=== PATIENT | female | born 1970 | race Two or more races ===

== ENCOUNTER 2023-11-25 14:16 | Inpatient (IN) | payer MEDICAID ==
[~2023-11-25] VITALS: Ht 152.4 cm; Wt 75.6 kg
[2023-11-25] MEDS: SODIUM CHLORIDE 0.9% 1,000 ML IV ONE (15:34)
[2023-11-25 15:44] LABS: Basophils # (auto) 0 10 ^3/uL (0-0.2); Basophils % (auto) 0.3 % (0.0-2.0); Eosinophils # (auto) 0 10 ^3/uL (0-0.8); Eosinophils % (auto) 0.1 % (0.0-7.0); Hematocrit 41.1 % (36.0-46.0); Hemoglobin 13.2 g/dL (12.2-16.2); Lymphocytes # (auto) 2.8 10 ^3/uL (0.4-5.4); Lymphocytes % (auto) 19.3 % (10.0-50.0); Mean Corpuscular Hemoglobin 27.1 pg (28.0-32.0); Mean Corpuscular Hgb Conc. 32.1 g/dL (32.0-36.0); Mean Corpuscular Volume 84.3 fL (80.0-100.0); Monocytes # (auto) 1.1 10 ^3/uL (0-1.3); Monocytes % (auto) 7.4 % (0.0-12.0); Neutrophils # (auto) 10.7 10 ^3/uL (1.6-8.6); Neutrophils % (auto) 72.9 % (37.0-80.0); Nucleated Red Blood Cells % 0.1 %; Platelet Count (auto) 409 10^3/uL (140-450); Red Blood Cells 4.88 10^6/uL (4.0-5.20); Red Cell Distribution Width 13.9 % (11.8-14.3); White Blood Cell 14.7 10^3/uL (4.4-10.8)
[2023-11-25 16:07] LABS: Alanine Aminotransferase 66 U/L (7-40); Albumin 4.9 g/dL (3.2-4.8); Alkaline Phosphatase 274 U/L (46-116); Anion Gap 8 (5-15); Aspartate Aminotransferase 30 U/L (13-40); BUN/Creatinine Ratio 8.3 (10.0-20.0); Bilirubin, Total 1.7 mg/dL (0.2-1.0); Blood Urea Nitrogen 7 mg/dL (9-23); Calcium 10.2 mg/dL (8.7-10.4); Carbon Dioxide 24 mmol/L (20-30); Chloride 97 mmol/L (98-107); Glucose 392 mg/dL (74-106); Lipase 41 U/L (12-53); Potassium 4.5 mmol/L (3.5-5.1); Sodium 129 mmol/L (136-145); Total Protein 9.1 g/dL (5.7-8.2)
[2023-11-25 16:14] LABS: Lactic Acid w/Reflex 3.3 mmol/L (0.4-2.0)
[2023-11-25] MEDS: KETOROLAC TROMETH 30 MG/ML 1ML VIAL IV ONE (17:00)
[2023-11-25] MEDS: ONDANSETRON HCL 4 MG/2 ML VIAL IV ONE (17:00)
[2023-11-25 17:18] LABS: Urine Bacteria None Seen /hpf (None Seen)
[2023-11-25 17:40] LABS: Urine Blood 1+ /uL (Negative); Urine Clarity Clear (Clear); Urine Color Yellow (Yellow); Urine Protein, UAD 1+ (Negative); Urine Specific Gravity 1.029 (1.001-1.035); Urine Urobilinogen Normal (Negative); Urine WBC 5 /hpf (0 - 5)
[2023-11-25] MEDS: IOHEXOL 300 MG/ML 100ML BOTTLE IJ ONE (19:44)
[2023-11-25] MEDS ORDERED: MORPHINE SULFATE 4 MG/ML SYR/VIAL IV ONE (20:15)
[2023-11-25] MEDS ORDERED: MORPHINE SULFATE INJ 2 MG/ml SYRG IV PRN (21:00)
[2023-11-25] MEDS ORDERED: DEXTROSE (50%) 50ML SYRG IV PRN (21:00)
[2023-11-25] MEDS ORDERED: ONDANSETRON HCL 4 MG/2 ML VIAL IV PRN (21:00)
[2023-11-25 22:57] VITALS: PULSE 102; RESP 16; O2SAT 99
[2023-11-25] MEDS: ACCU-CHEK COMFORT CURVE STRIP VI SCH (23:58)
[2023-11-25] MEDS: InsuLIN REG 1unit/0.01ml Soln (100units/ml) SC SCH (23:58)
[2023-11-26 00:16] VITALS: BP 126/67; PULSE 109; RESP 18; TEMP 99.9; O2SAT 96
[2023-11-26] MEDS: KETOROLAC TROMETH 30 MG/ML 1ML VIAL IV ONE (00:27)
[2023-11-26] MEDS ORDERED: SUCR1TAB PO (04:20)
[2023-11-26] MEDS ORDERED: METF-370 PO (04:20)
[2023-11-26] MEDS ORDERED: SITA100T7 PO (04:20)
[2023-11-26] MEDS ORDERED: PANT40T PO (04:20)
[2023-11-26] MEDS ORDERED: METF-1145 PO (04:20)
[2023-11-26] MEDS ORDERED: OMEP1CAP70 PO (04:20)
[2023-11-26] MEDS ORDERED: INSU1INJ19 SC (04:20)
[2023-11-26] MEDS ORDERED: ESTR0.1C5 VG (04:20)
[2023-11-26 05:00] VITALS: BP 108/66; PULSE 95; RESP 18; TEMP 99.2; O2SAT 99
[2023-11-26 08:01] LABS: Hematocrit 38.6 % (36.0-46.0); Hemoglobin 12.2 g/dL (12.2-16.2); Mean Corpuscular Hgb Conc. 31.7 g/dL (32.0-36.0); Mean Corpuscular Volume 85.2 fL (80.0-100.0); Platelet Count (auto) 390 10^3/uL (140-450); Red Blood Cells 4.53 10^6/uL (4.0-5.20); Red Cell Distribution Width 13.7 % (11.8-14.3); White Blood Cell 16.7 10^3/uL (4.4-10.8)
[2023-11-26 08:04] LABS: Band Neutrophils % (manual) 0; Basophils % (manual) 0 (0.0-2.0); Blast Cells 0; Eosinophils % (manual) 0 (0-7); Metamyelocytes % 0; Myelocytes % 0; Promyelocytes % 0; Reactive Lymphocytes 0
[2023-11-26 08:11] LABS: Alanine Aminotransferase 45 U/L (7-40); Albumin 3.9 g/dL (3.2-4.8); Alkaline Phosphatase 214 U/L (46-116); Anion Gap 3 (5-15); Aspartate Aminotransferase 27 U/L (13-40); BUN/Creatinine Ratio 8.1 (10.0-20.0); Blood Urea Nitrogen 5 mg/dL (9-23); Calcium 9.5 mg/dL (8.7-10.4); Carbon Dioxide 26 mmol/L (20-30); Chloride 104 mmol/L (98-107); Glucose 202 mg/dL (74-106); Potassium 3.8 mmol/L (3.5-5.1); Sodium 133 mmol/L (136-145)
[2023-11-26 08:12] LABS: Bilirubin, Total 1.6 mg/dL (0.2-1.0); Total Protein 7.4 g/dL (5.7-8.2)
[2023-11-26] MEDS ORDERED: ACETAMINOPHEN 325 MG TAB PO PRN (08:30)
[2023-11-26 08:46] LABS: Lymphocytes % (manual) 19 (10.0-50.0); Monocytes % (manual) 9 (0-12); Platelet Estimate Adequate
[2023-11-26 09:00] VITALS: BP 111/62; PULSE 108; RESP 17; TEMP 99.1; O2SAT 98
[2023-11-26] MEDS: SODIUM CHLORIDE 0.9% 1,000 ML IV SCH (09:11)
[2023-11-26] MEDS: ACETAMINOPHEN 650 mg PER 20.3 mL UD PO PRN (09:24)
[2023-11-26 13:00] VITALS: BP 110/65; PULSE 96; RESP 17; TEMP 98.8; O2SAT 96
[2023-11-26] MEDS: metroNIDAZOLE 500MG/100ML 100 ML IV SCH (13:03)
[2023-11-26] MEDS: LACTULOSE 20Gm/30ML SOLN PO ONE (13:34)
[2023-11-26 13:40] LABS: Hepatitis B Core Total AB Negative (Negative)
[2023-11-26] MEDS: CIPROFLOXACIN 400MG/200ML 200 ML IV SCH (14:07)
[2023-11-26 14:10] LABS: Hepatitis A Total Antibody Positive (Negative); Hepatitis B Surface Antibody Negative (Negative); Hepatitis B Surface Antigen Negative (Negative); Hepatitis C Antibody Negative (Negative)
[2023-11-26] MEDS: GADOTERATE MEG 10 MMOL/20ml INJ (0.5MMOL/ml) IV ONE (15:12)
[2023-11-26] MEDS: ERGOCALCIFEROL 50,000 UNIT(1.25MG) CAP PO SCH (16:00)
[2023-11-26 17:00] VITALS: BP 138/86; PULSE 111; RESP 17; TEMP 102.3; O2SAT 98
[2023-11-26] MEDS: ENOXAPARIN SOD 40 MG/0.4 ML SYRINGE SC ONE (17:33)
[2023-11-26] MEDS: PIPERACILLIN-TAZOB 3.375GM 100 ML IV ONE (18:30)
[2023-11-26] MEDS: diphenhdrAMINE HCL 50 MG/1 ML VL IV ONE (20:28)
[2023-11-26 21:00] VITALS: BP 121/77; PULSE 121; RESP 15; TEMP 100.3; O2SAT 98
[2023-11-26] MEDS: LACTULOSE 20Gm/30ML SOLN PO SCH (22:00)
[2023-11-27] MEDS: PIPERACILLIN-TAZOB 3.375GM 100 ML IV SCH (00:24)
[2023-11-27 05:00] VITALS: BP 142/79; PULSE 113; RESP 16; TEMP 98.2; O2SAT 98
[2023-11-27] MEDS ORDERED: VANCOMYCIN PER PHARMACY 0 MG IV SCH (05:30)
[2023-11-27] MEDS: VANCOMYCIN 1GM/200ML 200 ML IV ONE ×2 (06:00→10:39)
[2023-11-27 07:04] LABS: Basophils # (auto) 0 10 ^3/uL (0-0.2); Basophils % (auto) 0.3 % (0.0-2.0); Eosinophils # (auto) 0 10 ^3/uL (0-0.8); Hemoglobin 12.3 g/dL (12.2-16.2); Lymphocytes # (auto) 1.5 10 ^3/uL (0.4-5.4); Monocytes # (auto) 0.8 10 ^3/uL (0-1.3)
[2023-11-27 07:05] LABS: Eosinophils % (auto) 0.3 % (0.0-7.0); Hematocrit 37.8 % (36.0-46.0); Lymphocytes % (auto) 12.9 % (10.0-50.0); Mean Corpuscular Hgb Conc. 32.5 g/dL (32.0-36.0); Monocytes % (auto) 6.9 % (0.0-12.0); Neutrophils # (auto) 9.1 10 ^3/uL (1.6-8.6); Neutrophils % (auto) 79.6 % (37.0-80.0); Platelet Count (auto) 439 10^3/uL (140-450); Red Blood Cells 4.56 10^6/uL (4.0-5.20); Red Cell Distribution Width 13.9 % (11.8-14.3); White Blood Cell 11.4 10^3/uL (4.4-10.8)
[2023-11-27 07:24] LABS: Chloride 101 mmol/L (98-107); Potassium 3.3 mmol/L (3.5-5.1); Sodium 134 mmol/L (136-145)
[2023-11-27 07:25] LABS: Anion Gap 9 (5-15); Carbon Dioxide 24 mmol/L (20-30)
[2023-11-27 07:30] LABS: BUN/Creatinine Ratio 8.5 (10.0-20.0); Blood Urea Nitrogen 6 mg/dL (9-23); Glucose 235 mg/dL (74-106)
[2023-11-27 08:00] VITALS: BP 124/70; PULSE 128; RESP 20; TEMP 100.2; O2SAT 94
[2023-11-27 09:01] LABS: INR 1.16 (0.9-1.15); Prothrombin Time 12.2 sec (9.3-11.8)
[2023-11-27] MEDS ORDERED: ENOXAPARIN SOD 40 MG/0.4 ML SYRINGE SC SCH (10:00)
[2023-11-27] MEDS: METOPROLOL TARTRATE 25 MG TAB PO SCH (10:36)
[2023-11-27] MEDS: POTASSIUM CHL 20 Meq TABLET PO ONE (10:36)
[2023-11-27] MEDS: KETOROLAC TROMETH 30 MG/ML 1ML VIAL IV ONE (10:38)
[2023-11-27] MEDS: INSULIN LANTUS (GLARGINE) 1 /0.01ml (100units/ml) SC SCH (10:48)
[2023-11-27 12:00] VITALS: BP 116/91; PULSE 83; RESP 18; TEMP 97.9; O2SAT 98
[2023-11-27] MEDS: LORazepam 2MG/ML-1ML VIAL IV ONE (14:32)
[2023-11-27 16:00] VITALS: BP 98/61; PULSE 79; RESP 18; TEMP 97.5; O2SAT 97
[2023-11-27 20:00] VITALS: PULSE 102; RESP 19; O2SAT 100
[2023-11-27 21:00] VITALS: BP 101/57; PULSE 102; RESP 19; TEMP 99.8; O2SAT 100
[2023-11-27] MEDS: VANCOMYCIN 1GM/200ML 200 ML IV SCH (22:50)
[2023-11-28] VITALS (8 sets, daily range): BP systolic 106–131; BP diastolic 64–80; PULSE 84–120; RESP 16–20; TEMP 98–100.7; O2SAT 95–100
[2023-11-28] MEDS: HYDROcodone-ACET 7.5/325MG TAB PO PRN (00:42)
[2023-11-28 07:08] LABS: Basophils # (auto) 0 10 ^3/uL (0-0.2); Basophils % (auto) 0.3 % (0.0-2.0); Eosinophils # (auto) 0 10 ^3/uL (0-0.8); Eosinophils % (auto) 0.2 % (0.0-7.0); Hemoglobin 11.6 g/dL (12.2-16.2); Lymphocytes # (auto) 1.9 10 ^3/uL (0.4-5.4); Lymphocytes % (auto) 18.4 % (10.0-50.0); Mean Corpuscular Hemoglobin 27.4 pg (28.0-32.0); Mean Corpuscular Hgb Conc. 33.1 g/dL (32.0-36.0); Mean Corpuscular Volume 82.8 fL (80.0-100.0); Monocytes # (auto) 1.2 10 ^3/uL (0-1.3); Monocytes % (auto) 12.1 % (0.0-12.0); Neutrophils # (auto) 7.1 10 ^3/uL (1.6-8.6); Platelet Count (auto) 403 10^3/uL (140-450); Red Blood Cells 4.23 10^6/uL (4.0-5.20); White Blood Cell 10.3 10^3/uL (4.4-10.8)
[2023-11-28 07:32] LABS: Anion Gap 8 (5-15); Calcium 9.6 mg/dL (8.7-10.4); Carbon Dioxide 25 mmol/L (20-30); Chloride 103 mmol/L (98-107); Potassium 3.8 mmol/L (3.5-5.1); Sodium 136 mmol/L (136-145)
[2023-11-28 07:38] LABS: BUN/Creatinine Ratio 8.6 (10.0-20.0); Blood Urea Nitrogen 6 mg/dL (9-23); Glucose 196 mg/dL (74-106)
[2023-11-28] MEDS: INSULIN LANTUS (GLARGINE) 1 /0.01ml (100units/ml) SC SCH (10:35)
[2023-11-29 01:00] VITALS: BP 103/64; PULSE 84; RESP 18; TEMP 98.3; O2SAT 100
[2023-11-29 05:00] VITALS: BP 97/56; PULSE 88; RESP 18; TEMP 98.8; O2SAT 98
[2023-11-29] MEDS: VANCOMYCIN 1GM/200ML 200 ML IV SCH (05:32)
[2023-11-29 07:00] LABS: Basophils # (auto) 0 10 ^3/uL (0-0.2); Basophils % (auto) 0.2 % (0.0-2.0); Eosinophils # (auto) 0.1 10 ^3/uL (0-0.8); Mean Corpuscular Hemoglobin 27.3 pg (28.0-32.0); Monocytes # (auto) 1.2 10 ^3/uL (0-1.3)
[2023-11-29 07:06] LABS: Eosinophils % (auto) 0.8 % (0.0-7.0); Hematocrit 33.5 % (36.0-46.0); Lymphocytes # (auto) 2.5 10 ^3/uL (0.4-5.4); Lymphocytes % (auto) 22.1 % (10.0-50.0); Mean Corpuscular Hgb Conc. 32.9 g/dL (32.0-36.0); Mean Corpuscular Volume 82.8 fL (80.0-100.0); Monocytes % (auto) 10.7 % (0.0-12.0); Neutrophils # (auto) 7.5 10 ^3/uL (1.6-8.6); Neutrophils % (auto) 66.2 % (37.0-80.0); Platelet Count (auto) 444 10^3/uL (140-450); Red Blood Cells 4.04 10^6/uL (4.0-5.20); White Blood Cell 11.4 10^3/uL (4.4-10.8)
[2023-11-29 07:10] LABS: Anion Gap 6 (5-15); Carbon Dioxide 28 mmol/L (20-30); Chloride 102 mmol/L (98-107); Potassium 3.9 mmol/L (3.5-5.1); Sodium 136 mmol/L (136-145)
[2023-11-29 07:11] LABS: Calcium 9.3 mg/dL (8.7-10.4)
[2023-11-29 07:16] LABS: BUN/Creatinine Ratio 8.8 (10.0-20.0); Blood Urea Nitrogen 6 mg/dL (9-23); Glucose 187 mg/dL (74-106)
[2023-11-29 08:47] VITALS: BP 104/56; PULSE 90; RESP 16; TEMP 99.2; O2SAT 98
[2023-11-29] MEDS ORDERED: CIPR750T3 PO (11:55)
[2023-11-29] MEDS ORDERED: METR-344 PO (11:55)
[2023-11-29 13:00] VITALS: BP 100/54; PULSE 82; RESP 16; TEMP 98.9; O2SAT 96
== END 2023-11-29 15:40 | disposition home or self-care (01) | DRG 720 ==
LOC: ER 14:16 → OVERFLOW 21:00 → EAST 21:00
PROVIDERS: ADMIT Internal Medicine; ATTEND Internal Medicine
DX: A41.9 Sepsis, unspecified organism (principal); K75.0 Abscess of liver; C22.9 Malignant neoplasm of liver, not specified as primary or secondary; E11.9 Type 2 diabetes mellitus without complications; E55.9 Vitamin D deficiency, unspecified; K52.9 Noninfective gastroenteritis and colitis, unspecified; E80.6 Other disorders of bilirubin metabolism; K57.30 Diverticulosis of large intestine without perforation or abscess without bleeding; Z90.49 Acquired absence of other specified parts of digestive tract
CPT/HCPCS: 36415; 71045; 74177; 74183; 76705; 78226; 80048; 80053; 80202; 81001; 82105; 82306; 82378; 82607; 82962; 83036; 83605; 83690; 84443; 85007; 85025; 85027; 85610; 85730; 86301; 86704; 86706; 86708; 86803; 86850; 86900; 86901; 87040; 87340; 93971; 96361; 96374; 96375; G0378; J1815; J1885; J2405; J2543; J3490

== ENCOUNTER 2024-01-17 14:30 | Inpatient (IN) | payer MEDICAID, OTHER ==
[~2024-01-17] VITALS: Ht 152.4 cm; Wt 76.5 kg
[~2024-01-17 14:30] MED LIST: CIPR750T3 PO; ESTR0.1C5 VG; INSU1INJ19 SC; METF-1145 PO; METF-370 PO; METR-344 PO; OMEP1CAP70 PO; PANT40T PO; SITA100T7 PO; SUCR1TAB PO
[2024-01-17 17:00] VITALS: PULSE 73; RESP 16; O2SAT 98
[2024-01-17] MEDS: metroNIDAZOLE 500MG/100ML 100 ML IV ONE (17:07)
[2024-01-17 17:18] LABS: Basophils # (auto) 0 10 ^3/uL (0-0.2); Basophils % (auto) 0.6 % (0.0-2.0); Eosinophils # (auto) 0.2 10 ^3/uL (0-0.8); Eosinophils % (auto) 3.3 % (0.0-7.0); Hematocrit 38.1 % (36.0-46.0); Hemoglobin 12.4 g/dL (12.2-16.2); Lymphocytes # (auto) 2.7 10 ^3/uL (0.4-5.4); Lymphocytes % (auto) 42.7 % (10.0-50.0); Mean Corpuscular Hemoglobin 27.2 pg (28.0-32.0); Mean Corpuscular Hgb Conc. 32.6 g/dL (32.0-36.0); Mean Corpuscular Volume 83.4 fL (80.0-100.0); Monocytes # (auto) 0.5 10 ^3/uL (0-1.3); Monocytes % (auto) 8.3 % (0.0-12.0); Neutrophils # (auto) 2.9 10 ^3/uL (1.6-8.6); Neutrophils % (auto) 45.1 % (37.0-80.0); Nucleated Red Blood Cells % 0.1 %; Platelet Count (auto) 253 10^3/uL (140-450); Red Blood Cells 4.56 10^6/uL (4.0-5.20); White Blood Cell 6.4 10^3/uL (4.4-10.8)
[2024-01-17 17:29] LABS: INR 1.06 (0.9-1.15); Partial Thromboplastin Time 25.5 SEC (24.5-34.5); Prothrombin Time 11.2 sec (9.3-11.8)
[2024-01-17 20:35] VITALS: PULSE 73; RESP 16; O2SAT 98
[2024-01-17 21:49] LABS: Albumin 4.3 g/dL (3.2-4.8); Alkaline Phosphatase 294 U/L (46-116); Anion Gap 7 (5-15); Aspartate Aminotransferase 49 U/L (13-40); Carbon Dioxide 26 mmol/L (20-31); Chloride 106 mmol/L (98-107); Glucose 216 mg/dL (74-106); Sodium 139 mmol/L (136-145)
[2024-01-17 21:50] LABS: Bilirubin, Total 0.9 mg/dL (0.2-1.0); Total Protein 8.3 g/dL (5.7-8.2)
[2024-01-17 22:09] LABS: Lipase 52 U/L (12-53)
[2024-01-17 22:10] LABS: Alanine Aminotransferase 104 U/L (7-40); BUN/Creatinine Ratio 17.7 (10.0-20.0); Blood Urea Nitrogen 11 mg/dL (9-23); Potassium 4.8 mmol/L (3.5-5.1)
[2024-01-17] MEDS: IOHEXOL 300 MG/ML 100ML BOTTLE IJ ONE (22:11)
[2024-01-17] MEDS ORDERED: fentaNYL CITRATE 100 MCG/2 ML VL IV PRN (22:30)
[2024-01-17] MEDS: ONDANSETRON HCL 4 MG/2 ML VIAL IV ONE (22:36)
[2024-01-18] MEDS ORDERED: DEXTROSE (50%) 50ML SYRG IV PRN (06:45)
[2024-01-18] MEDS ORDERED: PIPERACILLIN-TAZOB 3.375GM 100 ML IV ONE (07:00)
[2024-01-18] MEDS ORDERED: hydrALAZINE HCL 20 MG/ML VL IV PRN (07:00)
[2024-01-18] MEDS ORDERED: INSR100KIT IV (07:40)
[2024-01-18 08:00] VITALS: PULSE 68; RESP 18; O2SAT 96
[2024-01-18] MEDS: ACCU-CHEK COMFORT CURVE STRIP VI SCH (08:04)
[2024-01-18] MEDS: InsuLIN REG 1unit/0.01ml Soln (100units/ml) SC SCH (08:06)
[2024-01-18] MEDS: INSULIN LANTUS (GLARGINE) 1 /0.01ml (100units/ml) SC SCH (08:11)
[2024-01-18 09:00] VITALS: BP 131/58; PULSE 67; RESP 18; TEMP 97.6; O2SAT 96
[2024-01-18] MEDS ORDERED: PIPERACILLIN-TAZOB 3.375GM 100 ML IV SCH (12:00)
[2024-01-18 13:00] VITALS: BP 127/79; PULSE 64; RESP 18; TEMP 97.9; O2SAT 98
[2024-01-18 14:45] LABS: Urine WBC None Seen /hpf (0 - 5)
[2024-01-18 15:30] LABS: Urine Bacteria FEW /hpf (None Seen); Urine Blood Negative /uL (Negative); Urine Clarity Clear (Clear); Urine Color Yellow (Yellow); Urine Protein, UAD Negative (Negative); Urine Specific Gravity 1.016 (1.001-1.035); Urine Urobilinogen Normal (Negative)
[2024-01-18] MEDS: PIPERACILLIN-TAZOB 3.375GM 100 ML IV SCH (16:12)
[2024-01-18 20:00] VITALS: PULSE 68; O2SAT 96
[2024-01-18 21:00] VITALS: BP 119/76; PULSE 78; RESP 20; TEMP 97.8; O2SAT 97
[2024-01-19] VITALS (8 sets, daily range): BP systolic 101–131; BP diastolic 57–78; PULSE 60–78; RESP 18–20; TEMP 97.7–98.2; O2SAT 95–98
[2024-01-19 06:45] LABS: Basophils # (auto) 0 10 ^3/uL (0-0.2); Basophils % (auto) 0.6 % (0.0-2.0); Eosinophils # (auto) 0.2 10 ^3/uL (0-0.8); Hematocrit 39.1 % (36.0-46.0); Hemoglobin 12.9 g/dL (12.2-16.2); Lymphocytes # (auto) 2.9 10 ^3/uL (0.4-5.4); Mean Corpuscular Hemoglobin 27.4 pg (28.0-32.0); Mean Corpuscular Hgb Conc. 33.1 g/dL (32.0-36.0); Mean Corpuscular Volume 82.6 fL (80.0-100.0); Monocytes # (auto) 0.5 10 ^3/uL (0-1.3); Monocytes % (auto) 7.3 % (0.0-12.0); Neutrophils # (auto) 2.7 10 ^3/uL (1.6-8.6); Neutrophils % (auto) 43.1 % (37.0-80.0); Nucleated Red Blood Cells % 0.1 %; Platelet Count (auto) 311 10^3/uL (140-450); Red Blood Cells 4.73 10^6/uL (4.0-5.20); Red Cell Distribution Width 15.6 % (11.8-14.3); White Blood Cell 6.3 10^3/uL (4.4-10.8)
[2024-01-19 06:56] LABS: Calcium 9.9 mg/dL (8.7-10.4); Chloride 107 mmol/L (98-107); Potassium 3.8 mmol/L (3.5-5.1); Sodium 140 mmol/L (136-145)
[2024-01-19 06:57] LABS: Anion Gap 8 (5-15); Carbon Dioxide 25 mmol/L (20-31)
[2024-01-19 07:02] LABS: BUN/Creatinine Ratio 14.3 (10.0-20.0); Blood Urea Nitrogen 9 mg/dL (9-23); Glucose 108 mg/dL (74-106)
[2024-01-19] MEDS: MEROPENEM 1GM IVPB 50 ML IV ONE (17:27)
[2024-01-19] MEDS: MEROPENEM 1GM IVPB 50 ML IV SCH (21:08)
[2024-01-19] MEDS: metroNIDAZOLE 500 MG TAB PO SCH (21:48)
[2024-01-20] VITALS (7 sets, daily range): BP systolic 106–129; BP diastolic 61–75; PULSE 60–88; RESP 17–20; TEMP 97.6–98.3; O2SAT 96–99
[2024-01-20 07:09] LABS: Basophils # (auto) 0 10 ^3/uL (0-0.2); Basophils % (auto) 0.4 % (0.0-2.0); Eosinophils # (auto) 0.2 10 ^3/uL (0-0.8); Eosinophils % (auto) 2.7 % (0.0-7.0); Hemoglobin 13.3 g/dL (12.2-16.2); Lymphocytes # (auto) 3.1 10 ^3/uL (0.4-5.4); Lymphocytes % (auto) 49.2 % (10.0-50.0); Mean Corpuscular Hemoglobin 27.5 pg (28.0-32.0); Mean Corpuscular Hgb Conc. 33.4 g/dL (32.0-36.0); Mean Corpuscular Volume 82.4 fL (80.0-100.0); Monocytes # (auto) 0.4 10 ^3/uL (0-1.3); Monocytes % (auto) 6.1 % (0.0-12.0); Neutrophils # (auto) 2.6 10 ^3/uL (1.6-8.6); Neutrophils % (auto) 41.6 % (37.0-80.0); Nucleated Red Blood Cells % 0.2 %; Platelet Count (auto) 328 10^3/uL (140-450); Red Blood Cells 4.85 10^6/uL (4.0-5.20); Red Cell Distribution Width 15.5 % (11.8-14.3); White Blood Cell 6.3 10^3/uL (4.4-10.8)
[2024-01-20 07:19] LABS: Anion Gap 8 (5-15); Carbon Dioxide 26 mmol/L (20-31); Chloride 107 mmol/L (98-107); Sodium 141 mmol/L (136-145)
[2024-01-20 07:21] LABS: Calcium 10.1 mg/dL (8.7-10.4)
[2024-01-20 07:25] LABS: BUN/Creatinine Ratio 18.2 (10.0-20.0); Blood Urea Nitrogen 12 mg/dL (9-23); Glucose 122 mg/dL (74-106)
[2024-01-20 11:37] LABS: Bilirubin, Direct 0.2 mg/dL (<0.3); Bilirubin, Total 0.7 mg/dL (0.2-1.0); Total Protein 8.2 g/dL (5.7-8.2)
[2024-01-20] MEDS ORDERED: GADOTERATE MEG 10 MMOL/20ml INJ (0.5MMOL/ml) IV ONE (16:35)
[2024-01-20] MEDS: ONDANSETRON HCL 4 MG/2 ML VIAL IV PRN (18:27)
[2024-01-20] MEDS: SUCRALFATE 1 GM/10 ML ORAL SUSP GT SCH (21:13)
[2024-01-20] MEDS ORDERED: metroNIDAZOLE 500MG/100ML 100 ML IV SCH (22:00)
[2024-01-21 01:00] VITALS: BP 108/64; PULSE 61; RESP 17; TEMP 98.3; O2SAT 98
[2024-01-21 04:58] VITALS: BP 118/68; PULSE 69; RESP 17; TEMP 98.4; O2SAT 98
[2024-01-21 08:00] VITALS: PULSE 67; RESP 18; O2SAT 100
[2024-01-21] MEDS: MEROPENEM 1GM IVPB 50 ML IV SCH (08:00)
[2024-01-21] MEDS ORDERED: DEXTROSE (50%) 50ML SYRG IV PRN (08:00)
[2024-01-21 09:00] VITALS: BP 123/63; PULSE 67; RESP 18; TEMP 97.5; O2SAT 100
[2024-01-21 09:41] LABS: Hepatitis B Surface Antigen Negative (Negative)
[2024-01-21 10:01] LABS: Hepatitis C Antibody Negative (Negative)
[2024-01-21] MEDS: PANTOPRAZOLE 40 MG/10 ML VIAL INJ IV SCH (10:14)
[2024-01-21] MEDS: ACCU-CHEK COMFORT CURVE STRIP VI SCH (11:30)
[2024-01-21] MEDS: InsuLIN REG 1unit/0.01ml Soln (100units/ml) SC SCH (12:55)
[2024-01-21 13:00] VITALS: BP 130/78; PULSE 65; RESP 16; TEMP 97.7; O2SAT 99
[2024-01-21] MEDS ORDERED: PANT40TA2 PO (14:19)
[2024-01-21] MEDS ORDERED: SUCR1SUS26 PO (14:19)
[2024-01-21] MEDS ORDERED: AUG875T PO ×2 (14:19→14:34)
[2024-01-21 17:00] VITALS: BP 108/62; PULSE 83; RESP 16; TEMP 97.7; O2SAT 98
== END 2024-01-21 17:56 | disposition home or self-care (01) | DRG 279 ==
LOC: EDUNIT# 14:36 → ER 14:36 → OVERFLOW 23:51 → WEST WING 01-18 02:11
PROVIDERS: ADMIT Internal Medicine; ATTEND Internal Medicine
DX: K75.0 Abscess of liver (principal); E11.9 Type 2 diabetes mellitus without complications; R74.01 Elevation of levels of liver transaminase levels; K76.0 Fatty (change of) liver, not elsewhere classified; E66.9 Obesity, unspecified; I10 Essential (primary) hypertension; Z83.3 Family history of diabetes mellitus; Z90.49 Acquired absence of other specified parts of digestive tract; Z68.33 Body mass index [BMI] 33.0-33.9, adult; Z79.4 Long term (current) use of insulin; Z79.899 Other long term (current) drug therapy; Z79.84 Long term (current) use of oral hypoglycemic drugs; Z88.1 Allergy status to other antibiotic agents; Z88.8 Allergy status to other drugs, medicaments and biological substances
CPT/HCPCS: 36415; 74177; 74183; 76705; 80048; 80053; 80076; 81001; 82140; 82306; 82607; 82962; 83036; 83605; 83690; 84443; 84484; 85025; 85610; 85730; 86803; 87040; 87340; G0378; J1815; J2185; J2405; J2470; J2543; J3490

== ENCOUNTER 2024-12-22 14:22 | Inpatient (IN) | payer MEDICAID ==
[~2024-12-22] VITALS: Ht 152.4 cm; Wt 77.0 kg
[~2024-12-22 14:22] MED LIST changes: +AUG875T PO; -CIPR750T3 PO; -ESTR0.1C5 VG; -METF-1145 PO; -METF-370 PO; -METR-344 PO; -OMEP1CAP70 PO; +PANT40TA2 PO; -SITA100T7 PO; +SUCR1SUS26 PO; -SUCR1TAB PO
--- NOTE | 2024-12-22 15:06 | ED.PDOC ---
GI ASSESSMENT HPI Comments 54 year old female presents to the ED with a chief complaint of abdominal pain onset 3 days. Patient states she has been experiencing epigastric pain, nausea, vomiting for the past 3 days. Patient was told by PCP liver enzymes were elevated, came to ED to to check liver enzymes. She noticed her eyes are having a yellowish color to it. PMHx DM insulin dependent. Denies fever, chills, hematemesis, dysuria, chest pain, shortness of breath, weakness. No other symptoms or modifying factors present at this time. Chief Complaint: Abdominal Pain Time Seen by MD: 14:55 Reviewed Notes: Medications, Allergies Allergies: Coded Allergies: Ciprofloxacin (Verified Allergy, Mild, 11/26/23) Ceftriaxone (Verified Allergy, Unknown, 11/25/23) Uncoded Allergies: CHOLESTEROL MEDICATIONS (Allergy, Severe, 01/17/24) CHOLESTEROL MEDS (Allergy, Unknown, 11/25/23) Home Meds Active Scripts Amoxicillin & Pot Clavulanate (AUGMENTIN TABLET) 875 Mg Tb, 875 MG PO BID for 10 Days, #20 TAB Prov:ELSIE GR RESIDENT 01/21/24 Pantoprazole Sodium Sesquihydr (Protonix) 40 Mg Tab, 40 MG PO DAILY for 30 Days, #30 TAB Prov:ELSIE GR RESIDENT 01/21/24 Sucralfate (CARAFATE SUSP) 1 Gm/10 Ml Ss, 1 GM PO TID@0600,1130,2200 for 30 Days, #10 ML Prov:ELSIE GR RESIDENT 01/21/24 Reported Medications Insulin Glargine (Basaglar Kwikpen) 100 Unit/Ml Inj, 10 UNIT SC DAILY 11/26/23 Pantoprazole Sodium Sesquihydr (Pantoprazole Sodium) 40 Mg Tab, 1 TAB PO DAILY 11/26/23 Information Source: Patient Mode of Arrival: Ambulatory Timing: Days Duration: Since onset Prehospital treatment: None Quality: Sharp Severity: Moderate Recent: None Recent Hx of: Liver Disease Pain Location: Epigastric Modifying Factors: Nothing Associated sign and symptoms: Nausea, Vomiting, Abdominal Pain Past Medical History PAST MEDICAL HISTORY: DM, High Lipids Surgical History: Denies all surgeries BRIM STRETCHER History: No Pertinent BRIM STRETCHER History Family History Family History: Reviewed,noncontributory to illness, Unknown Social History Smoker: Non-Smoker Alcohol: Denies ETOH Use Drugs: Denies Drug Use Lives In: Home Constitutional: denies: chills, diaphoresis, fatigue, fever, malaise, sweats, weakness, others EENTM: denies: blurred vision, double vision, ear bleeding, ear discharge, ear drainage, ear pain, ear ringing, eye pain, eye redness, hearing loss, mouth pain, mouth swelling, nasal discharge, nose bleeding, nose congestion, nose pain, photophobia, tearing, throat pain, throat swelling, voice changes, others Respiratory: denies: cough, hemoptysis, orthopnea, SOB at rest, shortness of breath, SOB with excertion, stridor, wheezing, others Cardiovascular: denies: chest pain, dizzy spells, diaphoresis, Dyspnea on exertion, edema, irregular heart beat, left arm pain, lightheadedness, palpitations, PND, syncope, others Gastrointestinal: reports: abdominal pain, nausea, vomiting; denies: abdomen distended, blood streaked bowels, constipated, diarrhea, dysphagia, difficulty swallowing, hematemesis, melena, poor appetite, poor fluid intake, rectal bleeding, rectal pain, others Genitourinary: denies: abnormal vagina bleeding, burning, dyspareunia, dysuria, flank pain, frequency, hematuria, incontinence, pain, , vagina discharge, urgency, others Neurological: denies: dizziness, fainting, headache, left sided numbness, left sided weakness, numbness, paresthesia, pre-existing deficit, right sided numbness, right sided weakness, seizure, speech problems, tingling, tremors, weakness, others Musculoskeletal: denies: back pain, gout, joint pain, joint swelling, muscle pain, muscle stiffness, neck pain, others Integumetry: denies: bruises, change in color, change in hair/nails, dryness, laceration, lesions, lumps, rash, wounds, others Allergic/Immunocompromised: denies: Difficulty Healing, Frequent Infections, Hives, Itching, others Hematologic/Lymphatic: denies: anemia, blood clots, easy bleeding, easy bruising, swollen glands, others Endocrine: denies: excessive hunger, excessive sweating, excessive thirst, excessive urination, flushing, intolerance to cold, intolerance to heat, unexplained weight gain, unexplained weight loss, others Psychiatric: denies: anxiety, bipolar disorder, depression, hopeless, panic disorder, schizophrenia, sleepless, suicidal, others All Other Systems: Reviewed and Negative Physical Exam General Appearance: Moderate Distress, Normal HEENT: Normal ENT Inspection, Pharynx Normal, TMs Normal Neck: Full Range of Motion, Non-Tender, Normal, Normal Inspection Respiratory: Chest Non-Tender, Lungs Clear, No Accessory Muscle Use, No Respiratory Distress, Normal Breath Sounds Cardiovascular: No Edema, No JVD, No Murmur, No Gallop, Normal Peripheral Pulses, Regular Rate/Rhythm Breast Exam: Deferred Gastrointestinal: No Organomegaly, Non Tender, No Pulsatile Mass, Normal Bowel Sounds, Soft Genitalia: Deferred Pelvic: Deferred Rectal: Deferred Extremities: No calf tenderness, Normal capillary refill, Normal inspection, Normal range of motion, Non-tender, No pedal edema Musculoskeletal : Apperance: Normal Neurologic: Alert, claims analyst II-XII nml as Tested, No Motor Deficits, Normal Affect, Normal Mood, No Sensory Deficits Cerebellar Function: Normal Reflexes: Normal Skin: Dry, Normal Color, Warm Peripheral Pulses: 3+ Radial (R), 3+ Radial (L) Lymphatic: No Adenopathy Was a procedure done? Was a procedure done?: No GI differential Dx Differential Diagnosis: Constipation, Diverticular disease, Esophagitis, Gastritis/PUD, Gastroenteritis X-Ray, Labs, Meds, VS Vital Signs Date Time Temp Pulse Resp B/P (MAP) Pulse Ox O2 Delivery O2 Flow Rate FiO2 12/22/24 14:25 98.5 81 16 142/73 100 98.5 Patient alert. Came in because of abdominal discomfort. History of liver cirrhosis. Vitals stable. She does have some form of stent placed. Possibly biliary. Primary care physician has sent the patient because she will possibly need MRI. Abdomen is soft. Explained to the patient. Continue monitoring. Time of 1ST Reevaluation: 15:25 Reevaluation 1ST: Unchanged Patient Education/Counseling: Diagnosis, Treatment, Prognosis Family Education/Counseling: No Family Present SEPSIS Sepsis Screen Date sepsis recognized/suspect: Dec 22, 2024 Time Sepsis recognized/suspect: 1429 Recent Procedure: No On Antibiotic Therapy: No Respiratory Rate >20: No Heart Rate >90: No Temp<36 C (96.8 F) or >38.3 C: No SBP <90 or MAP <65 mmHG: No New Acute Mental Status Change: No Is the patient on CPAP, BIPAP,: No Physician Orders Complete Blood Count (12/22/24 15:04) Comprehensive Metabolic Panel (12/22/24 15:04) Lipase (12/22/24 15:04) Urinalysis (12/22/24 15:04) Ct Ab Pel Wo Con-No Oral Or Iv (12/22/24 15:04) Vital Signs Date Time Temp Pulse Resp B/P (MAP) Pulse Ox O2 Delivery O2 Flow Rate FiO2 12/22/24 14:25 98.5 81 16 142/73 100 98.5 Departure 1 Departure Time of Disposition: 15:19 Impression: Primary Impression: Acute abdominal pain Disposition: ADMITTED INPATIENT Admit to: Med Surg Condition: Guarded Critical Care Note Critical Care Time?: No Stability Stability form required: No Heart Score Heart Score: Heart Score Response (Comments) Value History N/A 0 EKG N/A 0 Age N/A 0 Risk Factors N/A 0 Troponin N/A 0 Total 0 I personally scribed for BREONNA CASSIDY MD ([email or web address]) on 12/22/24 at 15:06. Electronically submitted by Sheree Santillan ([email or web address]). BREONNA CASSIDY MD Dec 22, 2024 15:06
[2024-12-22 15:50] LABS: Hematocrit 40.7 % (36.0-46.0); Hemoglobin 13.2 g/dL (12.2-16.2); Mean Corpuscular Hemoglobin 27.0 pg (28.0-32.0); Mean Corpuscular Volume 82.8 fL (80.0-100.0); Nucleated Red Blood Cells % 0.1 %
[2024-12-22 16:06] LABS: Albumin 4.2 g/dL (3.2-4.8); Anion Gap 10 (5-15); BUN/Creatinine Ratio 12.3 (10.0-20.0); Calcium 9.4 mg/dL (8.7-10.4); Carbon Dioxide 26 mmol/L (20-31); Chloride 102 mmol/L (98-107); Lipase 48 U/L (12-53); Potassium 3.7 mmol/L (3.5-5.1); Sodium 138 mmol/L (136-145); Total Protein 8.2 g/dL (5.7-8.2)
[2024-12-22 16:07] LABS: Alanine Aminotransferase 97 U/L (7-40); Alkaline Phosphatase 288 U/L (46-116); Bilirubin, Total 1.0 mg/dL (0.2-1.0); Blood Urea Nitrogen 9 mg/dL (9-23); Glucose 268 mg/dL (74-106)
[2024-12-22 16:52] LABS: Urine Protein, UAD Negative (Negative)
--- NOTE | 2024-12-22 17:13 | DVH ---
Exam: CT CT AB PEL WO CON-NO ORAL OR IV History: liver Comparison Study: MRI MRI ABDOMEN W AND WO on DOS: 01/20/24, MRI MRI ABDOMEN W AND WO on DOS: 11/27/23 , CT ABD/PEL W - IV on DOS: 04/08/23 TECHNIQUE: Multidetector CT of the abdomen was performed from lung bases to pubic symphysis. Imaging was performed without IV contrast. Axial, coronal and sagittal multiplanar reformats were obtained fr om the axial data set by the technologist. Radiation Dose Information: CT Dose: CTDI volume is 12.27 mGy. Dose-length product is 622.6 mGy*cm FINDINGS: Evaluation of solid organs is limited due to lack of intravenous contrast use. Findings: Lung Bases: No acute or significant lung base finding. Normal heart size. No pleural or pericardial effusion. Liver: The liver is normal in size. No focal lesions. Gallbladder and Biliary Tree: Gallbladder has been surgically removed. Pneumobilia is noted left lobe greater than right. Spleen: Unremarkable Pancreas: The pancreas is grossly normal in appearance. Adrenal Glands: Unremarkable Kidneys: Kidneys are grossly normal without calculi or hydronephrosis. Bladder: Grossly unremarkable for degree of distention. Bowel: The stomach is grossly normal in appearance. Small bowel and colon are normal in caliber and d istribution. Postop changes in the small bowel mid right abdomen. The appendix is not visualized; how ever, no secondary findings of acute appendicitis identified. Ascites: Absent Lymphadenopathy: No mesenteric, retroperitoneal or periportal lymphadenopathy. Abdominal Wall and Mesentery: Unremarkable. Vasculature: The visualized abdominal aorta is normal in size and caliber. Evaluation of abdominal a nd pelvic vessels is limited due to lack of intravenous contrast. Pelvic Organs: Unremarkable Musculoskeletal: No aggressive focal bony lesions, acute fractures or dislocation. Soft tissues: Unremarkable IMPRESSION: 1. Postop changes from a cholecystectomy. 2. Pneumobilia. 3. Postop small-bowel mid right abdomen. 4. Although report of previous study of 01/17/2024 is available there are no images available for [facility] from 01/17/2024; 11/25/23; 03/31/23, 07/20/22. Radiation optimization: All CT scans at this facility use at least one of these dose optimization te chniques: automated exposure control mA and/or kV adjustment per patient size (includes targeted exa ms where dose is matched to clinical indication) or iterative reconstruction.
[2024-12-22] MEDS ORDERED: NITROGLYCERIN 0.4 MG SL TAB SL PRN (18:00)
[2024-12-22] MEDS ORDERED: MORPHINE SULFATE INJ 2 MG/ml SYRG IV PRN (18:00)
--- NOTE | 2024-12-22 18:20 | DVHHP2 ---
History of Present Illness History of Present Illness Patient is 54-year-old female with past medical history of type 2 diabetes mellitus on insulin, mixed hyperlipidemia, transaminitis, biliary stricture, blockage of bile duct, hyperbilirubinemia, descending colon and sigmoid diverticulosis, liver abscess presented to hospital with a chief complaint of intractable nausea and vomiting for past 7-8 days. As per patient since March 2024 when she was diagnosed with liver abscess, she had on and off right upper quadrant abdominal pain which comes and goes, lasts less than 24 hours, 4/10 usually. However this time similar kind of pain lasted more than 24 over, had severe intractable nausea and vomiting on December 20, with intractable abdominal pain reaches eight to 10/10 prompted visit to the hospital. Patient also feeling she reached/had few chills for past few days as well. Patient denied diarrhea. Patient has extensive history of biliary stricture with multiple stents which was done three years ago with duodenal jejunostomy as well. However that problem has been taken care, she is not feeling well since last year when she was diagnosed with liver abscess and treated with IV antibiotic without procedure. Patient feeling dehydrated, urine is dark in color, patient had last menstrual period seven years ago, no chest pain, no shortness on breath, no motor or sensory weakness or no any other symptom. Patient denying any other complaint at this point. Past medical history:type 2 diabetes mellitus on insulin, mixed hyperlipidemia, transaminitis, biliary stricture, blockage of bile duct, hyperbilirubinemia, descending colon and sigmoid diverticulosis, liver abscess Past surgical history: Extensive enterolysis, robotic as necessary hepato jejunostomy, robotic jejunal jejunostomy approximately three years ago., C- section . Cholecystectomy Allergy: Ceftriaxone, oxycodone, cholesterol medication. Personal history noncontributory Family history noncontributory Home medication: Insulin glargine 25 units early in the morning, regular insulin 4 units before each meal. Pantoprazole 40 mg p.o. daily. Sucralfate 1 g p.o. t.i.d.. Review of Systems Constitutional: No: Fever, Chills, Sweats, Weakness, Malaise, Other Eyes: No: Pain, Vision change, Conjunctivae inflammation, Eyelid inflammation, Other, Redness ENT: No: Ear pain, Ear discharge, Nose pain, Nose discharge, Nose congestion, Mouth pain, Mouth swelling, Throat pain, Throat swelling, Other Respiratory: No: Cough, Dry, Shortness of breath, SOB with excertion, Wheezing, Hemoptysis, Pleuritic Pain, Sputum, Wheezing, Other Cardiovascular: No: Chest Pain, Palpitations, Orthopnea, Paroxysmal Noc. Dyspnea, Edema, Lt Headedness, Other Gastrointestinal: Nausea, Vomiting, Abdominal Pain Genitourinary: No Dysuria, No Frequency, No Incontinence, No Hematuria, No Retention, No Other Musculoskeletal: No: other, neck pain, shoulder pain, arm pain, back pain, hand pain, leg pain, foot pain Skin: No: Rash, Lesions, Jaundice, Bruising, Other Neurological: No: Weakness, Numbness, Incoordination, Change in speech, Confusion, Seizures, Other Allergies: Coded Allergies: Ciprofloxacin (Verified Allergy, Mild, 11/26/23) Ceftriaxone (Verified Allergy, Unknown, 11/25/23) Uncoded Allergies: CHOLESTEROL MEDICATIONS (Allergy, Severe, 01/17/24) CHOLESTEROL MEDS (Allergy, Unknown, 11/25/23) Exam Vital Signs Vital Signs Date Time Temp Pulse Resp B/P (MAP) Pulse Ox O2 Delivery O2 Flow Rate FiO2 12/22/24 14:25 98.5 81 16 142/73 100 98.5 Exam Patient lying in bed, in no acute distress General: Lucid, afebrile, mucosae are moist Cardiovascular: Normal S1 and S2. No murmurs, gallops or rubs Respiratory: Normal ventilation mechanics. Clear lung sounds on auscultation Abdomen: Soft, mild tenderness on deep palpation on right upper quadrant, no organomegaly, normal bowel sounds MSK/skin: Mobilizes 4 limbs. Skin is dry and warm Neurological: Oriented in 3 spheres. No motor no sensitive deficits. Pupils are isocoric and reactive Labs/Xrays Labs Test 12/22/24 15:35 12/22/24 15:04 Range/Units White Blood Count 7.6 4.4-10.8 10^3/uL Red Blood Count 4.91 4.0-5.20 10^6/uL Hemoglobin 13.2 12.2-16.2 g/dL Hematocrit 40.7 36.0-46.0 % Mean Corpuscular Volume 82.8 80.0-100.0 fL Mean Corpuscular Hemoglobin 27.0 L 28.0-32.0 pg Mean Corpuscular Hemoglobin Concent 32.6 32.0-36.0 g/dL Red Cell Distribution Width 14.5 H 11.8-14.3 % Platelet Count 303 140-450 10^3/uL Mean Platelet Volume 9.1 6.9-10.8 fL Neutrophils (%) (Auto) 48.4 37.0-80.0 % Lymphocytes (%) (Auto) 43.1 10.0-50.0 % Monocytes (%) (Auto) 6.4 0.0-12.0 % Eosinophils (%) (Auto) 1.7 0.0-7.0 % Basophils (%) (Auto) 0.4 0.0-2.0 % Neutrophils # (Auto) 3.7 1.6-8.6 10 ^3/uL Lymphocytes # (Auto) 3.3 0.4-5.4 10 ^3/uL Monocytes # (Auto) 0.5 0-1.3 10 ^3/uL Eosinophils # (Auto) 0.1 0-0.8 10 ^3/uL Basophils # (Auto) 0 0-0.2 10 ^3/uL Nucleated Red Blood Cells 0.1 % Sodium Level 138 136-145 mmol/L Potassium Level 3.7 3.5-5.1 mmol/L Chloride Level 102 98-107 mmol/L Carbon Dioxide Level 26 20-31 mmol/L Anion Gap 10 5-15 Blood Urea Nitrogen 9 9-23 mg/dL Creatinine 0.73 0.550-1.02 mg/dL Glomerular Filtration Rate Calc 99 >90 mL/min BUN/Creatinine Ratio 12.3 10.0-20.0 Serum Glucose 268 H 74-106 mg/dL Calcium Level 9.4 8.7-10.4 mg/dL Total Bilirubin 1.0 0.2-1.0 mg/dL Aspartate Amino Transferase (AST) 51 H 13-40 U/L Alanine Aminotransferase (ALT) 97 H 7-40 U/L Alkaline Phosphatase 288 H 46-116 U/L Total Protein 8.2 5.7-8.2 g/dL Albumin 4.2 3.2-4.8 g/dL Lipase 48 12-53 U/L Urine Color Light-yellow Yellow Urine Clarity Clear Clear Urine pH 6.0 5.0-9.0 Urine Specific [place] 1.009 1.001-1.035 Urine Protein Negative Negative Urine Ketones Negative Negative Urine Blood Negative Negative /uL Urine Nitrite Negative Negative Urine Bilirubin Negative Negative Urine Urobilinogen Normal Negative mg/dL Urine Leukocyte Esterase Negative Negative /uL Urine RBC 1 0 - 4 /hpf Urine Microscopic WBC 1 0-5 /HPF Urine Squamous Epithelial Cells Few <5 /hpf Urine Bacteria Few H None Seen /hpf Urine Glucose Normal Normal mg/dL SEPSIS Sepsis Screen Date sepsis recognized/suspect: Dec 22, 2024 Time Sepsis recognized/suspect: 1429 Recent Procedure: No On Antibiotic Therapy: No Respiratory Rate >20: No Heart Rate >90: No Temp<36 C (96.8 F) or >38.3 C: No SBP <90 or MAP <65 mmHG: No New Acute Mental Status Change: No Is the patient on CPAP, BIPAP,: No Physician Orders Ct Ab Pel Wo Con-No Oral Or Iv (12/22/24 15:04) Admit (12/22/24 17:56) Nitroglycerin Sublingual (Ntrostat Subli (12/22/24 18:00) Morphine Sulfate Injection (12/22/24 18:00) Oxygen By Nasal Cannula (12/22/24 17:56) Chest Xray 1 View (12/22/24 17:56) Troponin-I Hs (12/22/24 17:56) Electrocardigram (12/22/24 17:56) Sodium Chloride 0.9% (12/22/24 18:00) Clear Liq Diet (12/22/24 Dinner) Mri Abd & Plevis W/Wo Cont (12/22/24 18:01) * Gi Dvh Data Assistant (12/22/24 18:03) Zosyn Extended Infusion (12/22/24 18:15) Zosyn Extended Infusion (12/22/24 22:00) Blood Culture (12/22/24 18:04) Vital Signs Date Time Temp Pulse Resp B/P (MAP) Pulse Ox O2 Delivery O2 Flow Rate FiO2 12/22/24 14:25 98.5 81 16 142/73 100 98.5 Laboratory Tests Test 12/22/24 15:35 White Blood Count 7.6 10^3/uL (4.4-10.8) Assessment/Plan Assessment/Plan Acute right upper quadrant abdominal pain likely related to biliary colic/biliary stricture Rule out liver abscess Rule out liver mass -IV antibiotic with Zosyn 3.375 mg IV q.6 hours -MRI of abdomen and pelvis with and without contrast -blood cultures -IV fluid NS 100 mL per over -clear liquid diet -GI consultation -CT scan of the abdomen and pelvis on 12/22/2024: Postoperative changes from cholecystectomy, pneumobilia, postoperative small-bowel mid right abdomen. -p.r.n. Zofran IV 4 mg q.4 Pneumobilia -see management of herbal -GI consultation -continue monitor Diabetes mellitus type 2 8.7% A1c on 02/17/2024 -repeat A1c -not on any anti-lipid agent given allergy History of hypertension -not on any medication at home. Transaminitis with Fatty liver disease -AST 51, ALT 97, alkaline phosphate 288 -lifestyle modification Severe GERD -Protonix 40 mg IV daily History of extensive enterolysis, laparoscopic assisted hepaticojejunostomy and laparoscopic/robotic jejunal jejunostomy -was performed at [facility] in March 2023. Obesity BMI 33.1 kg/m2 -counseled on lifestyle modification regular exercise, healthy diet option. DVT prophylaxis with Lovenox PUD prophylaxis with Protonix PCP Dr. Glover Goals of care discussed greater than 24 m, full code status. Plan discussed with Dr. Tinajero Plan discussed with: Patient My Orders Orders - ELHAM GARDINER RESIDENT Procedure Category Date Status Time Admit ADMIT 12/22/24 Transmitted 17:56 Nitroglycerin PHA 12/22/24 Logged Sublingual (Ntrostat 18:00 Morphine Sulfate PHA 12/22/24 Logged Injection 18:00 Oxygen By Nasal RT 12/22/24 Transmitted Cannula 17:56 Chest Xray 1 View XY 12/22/24 Logged 17:56 Troponin-I Hs LAB 12/22/24 Logged 17:56 Electrocardigram EKG 12/22/24 Logged 17:56 Sodium Chloride 0.9% PHA 12/22/24 Logged 18:00 Clear Liq Diet DIET 12/22/24 Transmitted Dinner Mri Abd & Plevis W/Wo MRI 12/22/24 Logged Cont 18:01 * Gi Dvh Data Assistant CONS 12/22/24 Verified 18:03 Zosyn Extended PHA 12/22/24 Transmitted Infusion 18:15 Zosyn Extended PHA 12/22/24 Transmitted Infusion 22:00 Blood Culture JEANINE 12/22/24 Transmitted 18:04 Date of Service: Dec 22, 2024 Billing Provider: TOI TINAJERO MD Common Visit Codes: 09634-HDBLPEG INP/OBS CARE (HIGH) Secondary Visit Codes: 05820-[id number] CARE PLAN 30 MINUTES ELHAM GARDINER RESIDENT Dec 22, 2024 18:20
--- NOTE | 2024-12-22 18:28 | DVH ---
CHEST RADIOGRAPH Indication: epigastric pain Technique: Single frontal view of the chest was obtained Comparison: XY CHEST PORTABLE on DOS: 11/25/23, XR CHEST 1 VIEW on DOS: 02/23/23 FINDINGS: Lines and Tubes: None Lungs: No focal consolidation. Pleura: No effusion. No pneumothorax. Cardiomediastinal contours: Unremarkable Bones: No acute osseous abnormality. IMPRESSION: No acute cardiopulmonary disease.
[2024-12-22] MEDS ORDERED: ONDANSETRON HCL 4 MG/2 ML VIAL IV PRN (18:30)
[2024-12-22 19:35] LABS: Cholesterol 247 mg/dL (< 200); HDL Cholesterol 65 mg/dL (40-59); Triglycerides 178 mg/dL (< 150)
[2024-12-22 23:38] VITALS: O2SAT 98
[2024-12-22 23:46] VITALS: BP 130/57; PULSE 69; RESP 15; TEMP 97.7; O2SAT 99
[2024-12-23] VITALS (8 sets, daily range): BP systolic 109–132; BP diastolic 57–74; PULSE 60–77; RESP 13–18; TEMP 97.7–98.5; O2SAT 97–100
[2024-12-23] MEDS: PANTOPRAZOLE 40 MG/10 ML VIAL INJ IV ONE (00:36)
[2024-12-23] MEDS: PIPERACILLIN-TAZOB 3.375GM 100 ML IV ONE (00:37)
[2024-12-23] MEDS: ENOXAPARIN SOD 40 MG/0.4 ML SYRINGE SC ONE (00:37)
[2024-12-23] MEDS ORDERED: INSLISPI SC (00:55)
[2024-12-23] MEDS: PIPERACILLIN-TAZOB 3.375GM 100 ML IV SCH (08:11)
[2024-12-23] MEDS: ENOXAPARIN SOD 40 MG/0.4 ML SYRINGE SC SCH (10:01)
[2024-12-23] MEDS: PANTOPRAZOLE 40 MG/10 ML VIAL INJ IV SCH (10:01)
--- NOTE | 2024-12-23 12:04 | DVH ---
MRI Abdomen, without and with IV Contrast Exam Date: 12/23/2024 09:17 AM Comparison: CT CT AB PEL WO CON-NO ORAL OR IV on DOS: 12/22/24, MRI MRI ABDOMEN W AND WO on DOS: 01/19, CT CT AB PEL WITH IV CON ONLY on DOS: 01/17/24, MRI MRI ABDOMEN W AND WO on DOS: 11/27/23, CT CT AB PEL WITH IV CON ONLY on DOS: 11/25/23 History: ABNORMAL CT Technique: Multisequence multiplanar MRI images were obtained of the abomen. Findings: Bilateral breast prosthesis. Liver: The liver is normal in size without focal lesions. Normal liver contour. Spleen: Unremarkable. Pancreas: The pancreas is normal in appearance without focal lesions. Gallbladder and ducts: Post cholecystectomy. The cystic duct, right and left hepatic ducts, common he patic duct, and common bile ducts are unremarkable. The pancreatic duct is within normal limits. Adrenal glands: Unremarkable. Kidneys: Normal enhancement without suspicious lesions or hydronephrosis. Visualized bowel: Grossly unremarkable. Vasculature: Unremarkable. Lymphadenopathy: No evidence for lymphadenopathy. Ascites: Absent. Musculoskeletal: Bone marrow signal is normal. IMPRESSION: No acute findings.
--- NOTE | 2024-12-23 13:38 | DVHINCON2 ---
GI Consult Consult Note GI consult note Date of Consultation: 12/23/2024 Chief Complaint: Biliary colic right upper quadrant pain history of stents Referring Physician: H&P: 54-year-old female with past medical history of diabetes, hyperlipidemia, transaminitis, biliary stricture, hyperbilirubinemia, diverticulosis, liver abscess seen in the ER with complains of intractable nausea and vomiting for the past 7-8 days. Patient says nausea and vomiting slightly improved at this time. Still complaining of abdominal pain which is a four on a 0-10 scale. Two days ago pain was 10 on 10 scale which prompted patient to come to the ER. Patient was diagnosed with liver abscess and treated with IV antibiotics and has been hospitalized for this last year at [facility]. No hematemesis denies melena or red blood in stool. Patient usually follows up with GI at [place] last appointment being six weeks ago. Past Medical History: type 2 diabetes mellitus on insulin, mixed hyperlipidemia, transaminitis, biliary stricture, blockage of bile duct, hyperbilirubinemia, descending colon and sigmoid diverticulosis, liver abscess Past Surgical History: Extensive enterolysis, robotic as necessary hepato jejunostomy, robotic jejunal jejunostomy approximately three years ago., . Cholecystectomy Social History: NO smoking, drinking ETOH and use of illegal drugs. Family History: Noncontributory Review of Systems: Constitutional: no fever, chill, weight loss HEENT: no eye pain, no hearing loss, no oral lesion, no scleral icterus Heart: no chest pain, no chest pressure Lung: no cough, no dyspnea with exertion Abdomen: see HPI Physical exam: General: NAD, AAOX3 Chest: lung ramirez clear to auscultation Heart: RRR, no murmur Abdomen: non-distended, mild right upper quadrant tenderness to palpation, +BS Labs: Labs Test 12/22/24 21:07 12/22/24 15:35 12/22/24 15:04 Range/Units Troponin I High Sensitivity 3 L </=34 ng/L White Blood Count 7.6 4.4-10.8 10^3/uL Red Blood Count 4.91 4.0-5.20 10^6/uL Hemoglobin 13.2 12.2-16.2 g/dL Hematocrit 40.7 36.0-46.0 % Mean Corpuscular Volume 82.8 80.0-100.0 fL Mean Corpuscular Hemoglobin 27.0 L 28.0-32.0 pg Mean Corpuscular Hemoglobin Concent 32.6 32.0-36.0 g/dL Red Cell Distribution Width 14.5 H 11.8-14.3 % Platelet Count 303 140-450 10^3/uL Mean Platelet Volume 9.1 6.9-10.8 fL Neutrophils (%) (Auto) 48.4 37.0-80.0 % Lymphocytes (%) (Auto) 43.1 10.0-50.0 % Monocytes (%) (Auto) 6.4 0.0-12.0 % Eosinophils (%) (Auto) 1.7 0.0-7.0 % Basophils (%) (Auto) 0.4 0.0-2.0 % Neutrophils # (Auto) 3.7 1.6-8.6 10 ^3/uL Lymphocytes # (Auto) 3.3 0.4-5.4 10 ^3/uL Monocytes # (Auto) 0.5 0-1.3 10 ^3/uL Eosinophils # (Auto) 0.1 0-0.8 10 ^3/uL Basophils # (Auto) 0 0-0.2 10 ^3/uL Nucleated Red Blood Cells 0.1 % Sodium Level 138 136-145 mmol/L Potassium Level 3.7 3.5-5.1 mmol/L Chloride Level 102 98-107 mmol/L Carbon Dioxide Level 26 20-31 mmol/L Anion Gap 10 5-15 Blood Urea Nitrogen 9 9-23 mg/dL Creatinine 0.73 0.550-1.02 mg/dL Glomerular Filtration Rate Calc 99 >90 mL/min BUN/Creatinine Ratio 12.3 10.0-20.0 Serum Glucose 268 H 74-106 mg/dL Hemoglobin A1c 7.2 H <5.7 % A1C Calcium Level 9.4 8.7-10.4 mg/dL Total Bilirubin 1.0 0.2-1.0 mg/dL Aspartate Amino Transferase (AST) 51 H 13-40 U/L Alanine Aminotransferase (ALT) 97 H 7-40 U/L Alkaline Phosphatase 288 H 46-116 U/L Total Protein 8.2 5.7-8.2 g/dL Albumin 4.2 3.2-4.8 g/dL Triglycerides Level 178 H < 150 mg/dL Cholesterol Level 247 H < 200 mg/dL LDL Cholesterol 168 H < 100 mg/dL HDL Cholesterol 65 H 40-59 mg/dL Lipase 48 12-53 U/L Vitamin D 25-Hydroxy 13.2 L 30.0-100 ng/mL Thyroid Stimulating Hormone (TSH) 1.63 0.55-4.78 uIU/mL Urine Color Light-yellow Yellow Urine Clarity Clear Clear Urine pH 6.0 5.0-9.0 Urine Specific [place] 1.009 1.001-1.035 Urine Protein Negative Negative Urine Ketones Negative Negative Urine Blood Negative Negative /uL Urine Nitrite Negative Negative Urine Bilirubin Negative Negative Urine Urobilinogen Normal Negative mg/dL Urine Leukocyte Esterase Negative Negative /uL Urine RBC 1 0 - 4 /hpf Urine Microscopic WBC 1 0-5 /HPF Urine Squamous Epithelial Cells Few <5 /hpf Urine Bacteria Few H None Seen /hpf Urine Glucose Normal Normal mg/dL Imaging: CT abdomen pelvis IMPRESSION: 1. Postop changes from a cholecystectomy. 2. Pneumobilia. 3. Postop small-bowel mid right abdomen. 4. Although report of previous study of 01/17/2024 is available there are no images available for comparison from 01/17/2024; 11/25/23; 03/31/23, 07/20/22. MRI abdomen IMPRESSION: No acute findings. Assessment: Abdominal pain improving Nausea and vomiting improving Pneumobilia possibly secondary to prior procedures Transaminitis History of GERD Status post extensive enterolysis, laparoscopic-assisted hepato jejunostomy and laparoscopic robotic jejunal jejunostomy Performed at [place] in March 2023 Plan: Discussed with Dr. Mcelroy Pain management per hospitalist protocol Outpatient follow-up at [place] recommended after discharge Protonix and Zofran Symptomatic treatment Okay from GI point of view for discharge possibly today or tomorrow as patient's symptoms improve Discussed plan with patient and RN Thank you for this consult Date of Service: Dec 23, 2024 Billing Provider: MONROE HORTA Common Visit Codes: CONSULT ONLY Consultation Codes: [id number] CONSULT <60MIN MONROE HORTA Dec 23, 2024 13:38
[2024-12-23] MEDS: SODIUM CHLORIDE 0.9% 1,000 ML IV SCH (14:04)
--- NOTE | 2024-12-23 15:22 | DVHPN2 ---
Subjective Patient is seen at bedside, still some nausea. Reviewed: H&P Changes from previous H/P or p: No Changes General: Per HPI Eyes: No Pain, No Vision change, No Conjunctivae inflammation, No Eyelid inflammation, No Other, No Redness ENT: No Ear pain, No Ear discharge, No Nose pain, No Nose discharge, No Nose congestion, No Mouth pain, No Mouth swelling, No Throat pain, No Throat swelling, No Other Cardiovascular: No Chest Pain, No Palpitations, No Orthopnea, No Paroxysmal Noc. Dyspnea, No Edema, No Lt Headedness, No Other Respiratory: No Cough, No Dry, No Shortness of breath, No SOB with excertion, No Wheezing, No Hemoptysis, No Pleuritic Pain, No Sputum, No Other Gastrointestinal: Nausea, Vomiting, Abdominal Pain Genitourinary: No Dysuria, No Frequency, No Incontinence, No Hematuria, No Retention, No Other Musculoskeletal: No other, No neck pain, No shoulder pain, No arm pain, No back pain, No hand pain, No leg pain, No foot pain Skin: No Rash, No Lesions, No Jaundice, No Bruising, No Other Objective Vitals Vital Signs Date Time Temp Pulse Resp B/P (MAP) Pulse Ox O2 Delivery O2 Flow Rate FiO2 12/23/24 12:55 98.1 60 16 109/63 (78) 100 98.1 12/22/24 23:38 Room Air* 0 21 Exam General: Lucid, afebrile, mucosae are moist Cardiovascular: Normal S1 and S2. No murmurs, gallops or rubs Respiratory: Normal ventilation mechanics. Clear lung sounds on auscultation Abdomen: Soft, mild tenderness on deep palpation on right upper quadrant, no organomegaly, normal bowel sounds MSK/skin: Mobilizes 4 limbs. Skin is dry and warm Neurological: Oriented in 3 spheres. No motor no sensitive deficits. Pupils are isocoric and reactive Medications Current Medications Medications Dose Ordered Sig/Kanchan Route Start Time Stop Time Status Last Admin Dose Admin Nitroglycerin 0.4 mg Q5MINP PRN SL 12/22/24 18:00 Morphine Sulfate 2 mg Q30M PRN IV 12/22/24 18:00 Sodium Chloride 1,000 ml @ 100 mls/hr Q10H IV 12/22/24 18:00 12/23/24 14:04 100 MLS/HR Piperacillin Sod/ Tazobactam Sod 100 ml @ 25 mls/hr Q8H IV 12/23/24 08:00 12/23/24 08:11 25 MLS/HR Pantoprazole Sodium 40 mg DAILY IV 12/23/24 10:00 12/23/24 10:01 40 MG Enoxaparin Sodium 40 mg DAILY SC 12/23/24 10:00 12/23/24 10:01 40 MG Ondansetron HCl 4 mg Q4HPRN PRN IV 12/22/24 18:30 Laboratory Results Laboratory Tests 12/22/24 15:35 Chemistry Test 12/22/24 15:35 Albumin 4.2 g/dL (3.2-4.8) Calcium Level 9.4 mg/dL (8.7-10.4) Total Protein 8.2 g/dL (5.7-8.2) Lipid panel Test 12/22/24 15:35 Cholesterol Level 247 mg/dL (< 200) H HDL Cholesterol 65 mg/dL (40-59) H Lipase 48 U/L (12-53) Triglycerides Level 178 mg/dL (< 150) H LFT Test 12/22/24 15:35 Alanine Aminotransferase (ALT) 97 U/L (7-40) H Alkaline Phosphatase 288 U/L (46-116) H Aspartate Amino Transferase (AST) 51 U/L (13-40) H Total Bilirubin 1.0 mg/dL (0.2-1.0) HgA1c, TSH Test 12/22/24 15:35 Hemoglobin A1c 7.2 % A1C (<5.7) H Thyroid Stimulating Hormone (TSH) 1.63 uIU/mL (0.55-4.78) Urinalysis Test 12/22/24 15:04 Urine Color Light-yellow (Yellow) Urine Clarity Clear (Clear) Urine pH 6.0 (5.0-9.0) Urine Specific [place] 1.009 (1.001-1.035) Urine Protein Negative (Negative) Urine Ketones Negative (Negative) Urine Blood Negative /uL (Negative) Urine Nitrite Negative (Negative) Urine Bilirubin Negative (Negative) Urine Urobilinogen Normal mg/dL (Negative) Urine Leukocyte Esterase Negative /uL (Negative) Urine RBC 1 /hpf (0 - 4) Urine Microscopic WBC 1 /HPF (0-5) Urine Squamous Epithelial Cells Few /hpf (<5) Urine Bacteria Few /hpf (None Seen) H Urine Glucose Normal mg/dL (Normal) Labs and/or images reviewed: Labs reviewed by me, Image(s) reviewed by me Assessment/Plan Assessment/Plan 54-year-old female with past medical history of type 2 diabetes mellitus on insulin, mixed hyperlipidemia, transaminitis, biliary stricture, blockage of bile duct, hyperbilirubinemia, descending colon and sigmoid diverticulosis, liver abscess presented to hospital with a chief complaint of intractable nausea and vomiting for past 7-8 days. As per patient since March 2024 when she was diagnosed with liver abscess, she had on and off right upper quadrant abdominal pain which comes and goes, lasts less than 24 hours, 4/10 usually. However this time similar kind of pain lasted more than 24 over, had severe intractable nausea and vomiting on December 20, with intractable abdominal pain reaches eight to 10/10 prompted visit to the hospital. Patient also feeling she reached/had few chills for past few days as well. Patient denied diarrhea. Patient has extensive history of biliary stricture with multiple stents which was done three years ago with duodenal jejunostomy as well. However that problem has been taken care, she is not feeling well since last year when she was diagnosed with liver abscess and treated with IV antibiotic without procedure. Patient feeling dehydrated, urine is dark in color, patient had last menstrual period seven years ago, no chest pain, no shortness on breath, no motor or sensory weakness or no any other symptom. Patient denying any other complaint at this point. 12/23: Patient presenting with intractable nausea and vomiting with Rich history of his surgeries involving enterolysis. Has pneumobilia probably from the surgeries status post cholecystectomy. GI consulted recommend outpatient follow up with primary GI doctor, otherwise continue Protonix, Zofran, symptomatic treatment, pain management. This could possibly be gastroenteritis viral/bacterial infectious, continuing IV antibiotics and prior treatment plan Protonix/Zofran/IV fluids. Diet as tolerated. Acute right upper quadrant abdominal pain likely related to biliary colic/biliary stricture Rule out liver abscess Rule out liver mass -IV antibiotic with Zosyn 3.375 mg IV q.6 hours -MRI of abdomen and pelvis with and without contrast -blood cultures -IV fluid NS 100 mL per over -clear liquid diet -GI consultation -CT scan of the abdomen and pelvis on 12/22/2024: Postoperative changes from cholecystectomy, pneumobilia, postoperative small-bowel mid right abdomen. -p.r.n. Zofran IV 4 mg q.4 Pneumobilia -see management of herbal -GI consultation -continue monitor Diabetes mellitus type 2 8.7% A1c on 02/17/2024 -repeat A1c -not on any anti-lipid agent given allergy History of hypertension -not on any medication at home. Transaminitis with Fatty liver disease -AST 51, ALT 97, alkaline phosphate 288 -lifestyle modification Severe GERD -Protonix 40 mg IV daily History of extensive enterolysis, laparoscopic assisted hepaticojejunostomy and laparoscopic/robotic jejunal jejunostomy -was performed at [facility] in March 2023. Obesity BMI 33.1 kg/m2 -counseled on lifestyle modification regular exercise, healthy diet option. DVT prophylaxis with Lovenox PUD prophylaxis with Protonix Plan discussed with: Patient Date of Service: Dec 23, 2024 Billing Provider: COTY MEDRANO MD Common Visit Codes: [id number] INP/OBS CARE(HIGH) COTY MEDRANO MD Dec 23, 2024 15:22
[2024-12-23] MEDS: AMPICILLIN & SULBACTAM SODIUM 3 GM in SODIUM CHL 0.9% 100 ML IV SCH (18:12)
[2024-12-24] MEDS ORDERED: DEXTROSE (50%) 50ML SYRG IV PRN (03:45)
[2024-12-24 05:00] VITALS: BP 111/71; PULSE 64; RESP 20; TEMP 98; O2SAT 97
[2024-12-24] MEDS: ACCU-CHEK COMFORT CURVE STRIP VI SCH (06:19)
[2024-12-24] MEDS: InsuLIN REG 1unit/0.01ml Soln (100units/ml) SC SCH (06:19)
[2024-12-24 08:23] LABS: Albumin 3.9 g/dL (3.2-4.8); Anion Gap 11 (5-15); BUN/Creatinine Ratio 11.7 (10.0-20.0); Calcium 9.2 mg/dL (8.7-10.4); Carbon Dioxide 25 mmol/L (20-31); Hematocrit 39.6 % (36.0-46.0); Hemoglobin 13.2 g/dL (12.2-16.2); Mean Corpuscular Hemoglobin 27.4 pg (28.0-32.0); Mean Corpuscular Volume 82.4 fL (80.0-100.0); Nucleated Red Blood Cells % 0.1 %; Potassium 3.7 mmol/L (3.5-5.1); Sodium 143 mmol/L (136-145); Total Protein 7.6 g/dL (5.7-8.2)
[2024-12-24 08:24] LABS: Bilirubin, Total 0.8 mg/dL (0.2-1.0)
[2024-12-24 08:26] LABS: Alanine Aminotransferase 68 U/L (7-40); Alkaline Phosphatase 228 U/L (46-116); Blood Urea Nitrogen 7 mg/dL (9-23); Chloride 107 mmol/L (98-107); Glucose 112 mg/dL (74-106)
[2024-12-24 09:00] VITALS: BP 111/68; PULSE 65; RESP 18; TEMP 97.5; O2SAT 97
[2024-12-24] MEDS: BACLOFEN 10 MG TAB PO SCH (10:28)
[2024-12-24] MEDS: methylPREDNISolone SOD SUCC 40 MG/ML VL IV ONE ×2 (10:28→14:03)
[2024-12-24] MEDS: PIPERACILLIN-TAZOB 3.375GM 100 ML IV SCH (10:35)
--- NOTE | 2024-12-24 11:37 | DVHPN2 ---
Subjective Patient is seen at bedside, still some nausea. Reviewed: H&P Changes from previous H/P or p: No Changes General: Per HPI Eyes: No Pain, No Vision change, No Conjunctivae inflammation, No Eyelid inflammation, No Other, No Redness ENT: No Ear pain, No Ear discharge, No Nose pain, No Nose discharge, No Nose congestion, No Mouth pain, No Mouth swelling, No Throat pain, No Throat swelling, No Other Cardiovascular: No Chest Pain, No Palpitations, No Orthopnea, No Paroxysmal Noc. Dyspnea, No Edema, No Lt Headedness, No Other Respiratory: No Cough, No Dry, No Shortness of breath, No SOB with excertion, No Wheezing, No Hemoptysis, No Pleuritic Pain, No Sputum, No Other Gastrointestinal: Nausea, Vomiting, Abdominal Pain Genitourinary: No Dysuria, No Frequency, No Incontinence, No Hematuria, No Retention, No Other Musculoskeletal: No other, No neck pain, No shoulder pain, No arm pain, No back pain, No hand pain, No leg pain, No foot pain Skin: No Rash, No Lesions, No Jaundice, No Bruising, No Other Objective Vitals Vital Signs Date Time Temp Pulse Resp B/P (MAP) Pulse Ox O2 Delivery O2 Flow Rate FiO2 12/24/24 09:00 97.5 65 18 111/68 (82) 97 97.5 12/24/24 08:05 Room Air* 0 21 Intake/Output Intake and Output 12/24/24 07:00 Intake Total 600 ml Balance 600 ml Intake Oral 0 ml IV Total 600 ml # Voids 1 Exam General: Lucid, afebrile, mucosae are moist Cardiovascular: Normal S1 and S2. No murmurs, gallops or rubs Respiratory: Normal ventilation mechanics. Clear lung sounds on auscultation Abdomen: Soft, mild tenderness on deep palpation on right upper quadrant, no organomegaly, normal bowel sounds MSK/skin: Mobilizes 4 limbs. Skin is dry and warm Neurological: Oriented in 3 spheres. No motor no sensitive deficits. Pupils are isocoric and reactive Medications Current Medications Medications Dose Ordered Sig/Kanchan Route Start Time Stop Time Status Last Admin Dose Admin Nitroglycerin 0.4 mg Q5MINP PRN SL 12/22/24 18:00 Morphine Sulfate 2 mg Q30M PRN IV 12/22/24 18:00 Sodium Chloride 1,000 ml @ 100 mls/hr Q10H IV 12/22/24 18:00 12/24/24 09:01 100 MLS/HR Pantoprazole Sodium 40 mg DAILY IV 12/23/24 10:00 12/24/24 08:50 40 MG Enoxaparin Sodium 40 mg DAILY SC 12/23/24 10:00 12/24/24 08:51 40 MG Ondansetron HCl 4 mg Q4HPRN PRN IV 12/22/24 18:30 Diagnostic Test (Pha) 1 strip ACHS 12/24/24 07:00 12/24/24 10:39 1 STRIP Insulin Human Regular ACHS SC 12/24/24 07:00 12/24/24 10:44 4 UNITS Dextrose 50 ml UD PRN IV 12/24/24 03:45 Piperacillin Sod/ Tazobactam Sod 100 ml @ 25 mls/hr Q8HR IV 12/24/24 14:00 12/24/24 10:35 25 MLS/HR Baclofen 10 mg BID PO 12/24/24 10:00 12/24/24 10:28 10 MG Laboratory Results Laboratory Tests 12/24/24 07:20 Chemistry Test 12/24/24 07:20 Albumin 3.9 g/dL (3.2-4.8) Calcium Level 9.2 mg/dL (8.7-10.4) Total Protein 7.6 g/dL (5.7-8.2) LFT Test 12/24/24 07:20 Alanine Aminotransferase (ALT) 68 U/L (7-40) H Alkaline Phosphatase 228 U/L (46-116) H Aspartate Amino Transferase (AST) 31 U/L (13-40) Total Bilirubin 0.8 mg/dL (0.2-1.0) Urinalysis Test 12/22/24 15:04 Urine Color Light-yellow (Yellow) Urine Clarity Clear (Clear) Urine pH 6.0 (5.0-9.0) Urine Specific [place] 1.009 (1.001-1.035) Urine Protein Negative (Negative) Urine Ketones Negative (Negative) Urine Blood Negative /uL (Negative) Urine Nitrite Negative (Negative) Urine Bilirubin Negative (Negative) Urine Urobilinogen Normal mg/dL (Negative) Urine Leukocyte Esterase Negative /uL (Negative) Urine RBC 1 /hpf (0 - 4) Urine Microscopic WBC 1 /HPF (0-5) Urine Squamous Epithelial Cells Few /hpf (<5) Urine Bacteria Few /hpf (None Seen) H Urine Glucose Normal mg/dL (Normal) Microbiology Microbiology Date/Time Source Procedure Growth Status 12/22/24 18:32 Blood Blood Culture - Preliminary NO GROWTH AFTER 24 HOURS OF INCUBATION. Resulted Labs and/or images reviewed: Labs reviewed by me, Image(s) reviewed by me Assessment/Plan Assessment/Plan 54-year-old female with past medical history of type 2 diabetes mellitus on insulin, mixed hyperlipidemia, transaminitis, biliary stricture, blockage of bile duct, hyperbilirubinemia, descending colon and sigmoid diverticulosis, liver abscess presented to hospital with a chief complaint of intractable nausea and vomiting for past 7-8 days. As per patient since March 2024 when she was diagnosed with liver abscess, she had on and off right upper quadrant abdominal pain which comes and goes, lasts less than 24 hours, 4/10 usually. However this time similar kind of pain lasted more than 24 over, had severe intractable nausea and vomiting on December 20, with intractable abdominal pain reaches eight to 10/10 prompted visit to the hospital. Patient also feeling she reached/had few chills for past few days as well. Patient denied diarrhea. Patient has extensive history of biliary stricture with multiple stents which was done three years ago with duodenal jejunostomy as well. However that problem has been taken care, she is not feeling well since last year when she was diagnosed with liver abscess and treated with IV antibiotic without procedure. Patient feeling dehydrated, urine is dark in color, patient had last menstrual period seven years ago, no chest pain, no shortness on breath, no motor or sensory weakness or no any other symptom. Patient denying any other complaint at this point. 12/23: Patient presenting with intractable nausea and vomiting with Rich history of his surgeries involving enterolysis. Has pneumobilia probably from the surgeries status post cholecystectomy. GI consulted recommend outpatient follow up with primary GI doctor, otherwise continue Protonix, Zofran, symptomatic treatment, pain management. This could possibly be gastroenteritis viral/bacterial infectious, continuing IV antibiotics and prior treatment plan Protonix/Zofran/IV fluids. Diet as tolerated. 12/24: Patient does feel a little better but still has some lingering pain. She has been taking antacids outpatient but still has the pain. will try solumedrol 20 and continue antiemetics. reaction to unasyn , so will continue back to zosyn. Acute right upper quadrant abdominal pain likely related to biliary colic/biliary stricture Rule out liver abscess Rule out liver mass -IV antibiotic with Zosyn 3.375 mg IV q.6 hours -MRI of abdomen and pelvis with and without contrast -blood cultures -IV fluid NS 100 mL per over -clear liquid diet -GI consultation -CT scan of the abdomen and pelvis on 12/22/2024: Postoperative changes from cholecystectomy, pneumobilia, postoperative small-bowel mid right abdomen. -p.r.n. Zofran IV 4 mg q.4 Pneumobilia -see management of herbal -GI consultation -continue monitor Diabetes mellitus type 2 8.7% A1c on 02/17/2024 -repeat A1c -not on any anti-lipid agent given allergy History of hypertension -not on any medication at home. Transaminitis with Fatty liver disease -AST 51, ALT 97, alkaline phosphate 288 -lifestyle modification Severe GERD -Protonix 40 mg IV daily History of extensive enterolysis, laparoscopic assisted hepaticojejunostomy and laparoscopic/robotic jejunal jejunostomy -was performed at [facility] in March 2023. Obesity BMI 33.1 kg/m2 -counseled on lifestyle modification regular exercise, healthy diet option. DVT prophylaxis with Lovenox PUD prophylaxis with Protonix Plan discussed with: Patient My Orders Orders - COTY MEDRANO MD Procedure Category Date Status Time Mechanical Soft Diet DIET 12/23/24 Transmitted Dinner Piperacillin-Tazob PHA 12/24/24 In Process 3.375gm (Zosyn 3.375g 14:00 Methylprednisolone PHA 12/24/24 In Process Sod Succ (Solu Medrol 11:30 Baclofen Tablet PHA 12/24/24 In Process (Liorisal Tablet) 10:00 Date of Service: Dec 24, 2024 Billing Provider: COTY MEDRANO MD Common Visit Codes: [id number] INP/OBS CARE(HIGH) COTY MEDRANO MD Dec 24, 2024 11:36
[2024-12-24 13:00] VITALS: BP 132/85; PULSE 66; RESP 20; TEMP 97.5; O2SAT 100
--- NOTE | 2024-12-24 13:51 | DVHPN2 ---
Subjective Patient admits to improving abdominal pain But has concerns about recurrent abdominal pain No EGD or colonoscopy in past Reviewed: H&P Changes from previous H/P or p: No Changes General: Per HPI Eyes: No Pain, No Vision change, No Conjunctivae inflammation, No Eyelid inflammation, No Other, No Redness ENT: No Ear pain, No Ear discharge, No Nose pain, No Nose discharge, No Nose congestion, No Mouth pain, No Mouth swelling, No Throat pain, No Throat swelling, No Other Cardiovascular: No Chest Pain, No Palpitations, No Orthopnea, No Paroxysmal Noc. Dyspnea, No Edema, No Lt Headedness, No Other Respiratory: No Cough, No Dry, No Shortness of breath, No SOB with excertion, No Wheezing, No Hemoptysis, No Pleuritic Pain, No Sputum, No Other Gastrointestinal: Nausea, Vomiting, Abdominal Pain Genitourinary: No Dysuria, No Frequency, No Incontinence, No Hematuria, No Retention, No Other Musculoskeletal: No other, No neck pain, No shoulder pain, No arm pain, No back pain, No hand pain, No leg pain, No foot pain Skin: No Rash, No Lesions, No Jaundice, No Bruising, No Other Objective Vitals Vital Signs Date Time Temp Pulse Resp B/P (MAP) Pulse Ox O2 Delivery O2 Flow Rate FiO2 12/24/24 09:00 97.5 65 18 111/68 (82) 97 97.5 12/24/24 08:05 Room Air* 0 21 Intake/Output Intake and Output 12/24/24 07:00 Intake Total 600 ml Balance 600 ml Intake Oral 0 ml IV Total 600 ml # Voids 1 General Appearance: Alert, Oriented X3, Cooperative, No acute distress, mild distress, moderate distress, severe distress, Other Lungs: Clear to auscultation, Normal air movement, Other Cardiovascular: Regular rate, Normal S1, Normal S2, No murmurs, Gallops, Rubs, Other Abdomen: Normal bowel sounds, Soft, No tenderness, No hepatospenomegaly, No masses, Other Medications Current Medications Medications Dose Ordered Sig/[place]chan Route Start Time Stop Time Status Last Admin Dose Admin Nitroglycerin 0.4 mg Q5MINP PRN SL 12/22/24 18:00 Morphine Sulfate 2 mg Q30M PRN IV 12/22/24 18:00 Sodium Chloride 1,000 ml @ 100 mls/hr Q10H IV 12/22/24 18:00 12/24/24 09:01 100 MLS/HR Pantoprazole Sodium 40 mg DAILY IV 12/23/24 10:00 12/24/24 08:50 40 MG Enoxaparin Sodium 40 mg DAILY SC 12/23/24 10:00 12/24/24 08:51 40 MG Ondansetron HCl 4 mg Q4HPRN PRN IV 12/22/24 18:30 Diagnostic Test (Pha) 1 strip ACHS 12/24/24 07:00 12/24/24 10:39 1 STRIP Insulin Human Regular ACHS SC 12/24/24 07:00 12/24/24 10:44 4 UNITS Dextrose 50 ml UD PRN IV 12/24/24 03:45 Piperacillin Sod/ Tazobactam Sod 100 ml @ 25 mls/hr Q8HR IV 12/24/24 14:00 12/24/24 10:35 25 MLS/HR Baclofen 10 mg BID PO 12/24/24 10:00 12/24/24 10:28 10 MG Laboratory Results Laboratory Tests 12/24/24 07:20 Chemistry Test 12/24/24 07:20 Albumin 3.9 g/dL (3.2-4.8) Calcium Level 9.2 mg/dL (8.7-10.4) Total Protein 7.6 g/dL (5.7-8.2) LFT Test 12/24/24 07:20 Alanine Aminotransferase (ALT) 68 U/L (7-40) H Alkaline Phosphatase 228 U/L (46-116) H Aspartate Amino Transferase (AST) 31 U/L (13-40) Total Bilirubin 0.8 mg/dL (0.2-1.0) Urinalysis Test 12/22/24 15:04 Urine Color Light-yellow (Yellow) Urine Clarity Clear (Clear) Urine pH 6.0 (5.0-9.0) Urine Specific [place] 1.009 (1.001-1.035) Urine Protein Negative (Negative) Urine Ketones Negative (Negative) Urine Blood Negative /uL (Negative) Urine Nitrite Negative (Negative) Urine Bilirubin Negative (Negative) Urine Urobilinogen Normal mg/dL (Negative) Urine Leukocyte Esterase Negative /uL (Negative) Urine RBC 1 /hpf (0 - 4) Urine Microscopic WBC 1 /HPF (0-5) Urine Squamous Epithelial Cells Few /hpf (<5) Urine Bacteria Few /hpf (None Seen) H Urine Glucose Normal mg/dL (Normal) Microbiology Microbiology Date/Time Source Procedure Growth Status 12/22/24 18:32 Blood Blood Culture - Preliminary NO GROWTH AFTER 24 HOURS OF INCUBATION. Resulted Labs and/or images reviewed: Labs reviewed by me, Image(s) reviewed by me Assessment/Plan Assessment/Plan Abdominal pain improving Nausea and vomiting improving Pneumobilia possibly secondary to prior procedures Transaminitis History of GERD Status post extensive enterolysis, laparoscopic-assisted hepato jejunostomy and laparoscopic robotic jejunal jejunostomy Performed at [facility] in March 2023 Plan: Discussed with Dr. Mcelroy Protonix and Zofran Pain management Possible EGD and colonoscopy recommended possible outpatient basis unless patient's symptoms persist We will continue to monitor patient Plan discussed with: Patient, Daughter, Other (Dr. James) Date of Service: Dec 24, 2024 Billing Provider: MONROE HORTA Common Visit Codes: [id number] INP/OBS CARE(HIGH) MONROE HORTA Dec 24, 2024 13:51
[2024-12-24 16:55] VITALS: BP 122/73; PULSE 70; RESP 20; TEMP 97.8; O2SAT 96
[2024-12-24 20:00] VITALS: PULSE 66; RESP 16
[2024-12-24 20:45] VITALS: BP 115/72; PULSE 66; RESP 16; TEMP 98; O2SAT 94
[2024-12-25 01:00] VITALS: BP 121/74; PULSE 75; RESP 16; TEMP 98.5; O2SAT 95
[2024-12-25] MEDS: ACETAMINOPHEN 325 MG TAB PO ONE (01:18)
[2024-12-25 09:00] VITALS: BP 107/71; PULSE 72; RESP 18; TEMP 97.9; O2SAT 96
--- NOTE | 2024-12-25 13:30 | DVHPN2 ---
Subjective Patient admits to improving abdominal pain But has concerns about recurrent abdominal pain No EGD or colonoscopy in past Reviewed: H&P Changes from previous H/P or p: No Changes General: Per HPI Eyes: No Pain, No Vision change, No Conjunctivae inflammation, No Eyelid inflammation, No Other, No Redness ENT: No Ear pain, No Ear discharge, No Nose pain, No Nose discharge, No Nose congestion, No Mouth pain, No Mouth swelling, No Throat pain, No Throat swelling, No Other Cardiovascular: No Chest Pain, No Palpitations, No Orthopnea, No Paroxysmal Noc. Dyspnea, No Edema, No Lt Headedness, No Other Respiratory: No Cough, No Dry, No Shortness of breath, No SOB with excertion, No Wheezing, No Hemoptysis, No Pleuritic Pain, No Sputum, No Other Gastrointestinal: Nausea, Vomiting, Abdominal Pain Genitourinary: No Dysuria, No Frequency, No Incontinence, No Hematuria, No Retention, No Other Musculoskeletal: No other, No neck pain, No shoulder pain, No arm pain, No back pain, No hand pain, No leg pain, No foot pain Skin: No Rash, No Lesions, No Jaundice, No Bruising, No Other Objective Vitals Vital Signs Date Time Temp Pulse Resp B/P (MAP) Pulse Ox O2 Delivery O2 Flow Rate FiO2 12/25/24 09:00 97.9 72 18 107/71 (83) 96 97.9 12/24/24 20:00 Room Air* 0 21 Intake/Output Intake and Output 12/25/24 07:00 Intake Total 1450 ml Output Total 4 ml Balance 1446 ml Intake Oral 700 ml IV Total 750 ml Output Stool Total 1 ml Urine/Stool Mix 3 ml General Appearance: Alert, Oriented X3, Cooperative, No acute distress, mild distress, moderate distress, severe distress, Other Lungs: Clear to auscultation, Normal air movement, Other Cardiovascular: Regular rate, Normal S1, Normal S2, No murmurs, Gallops, Rubs, Other Abdomen: Normal bowel sounds, Soft, No tenderness, No hepatospenomegaly, No masses, Other Medications Current Medications Medications Dose Ordered Sig/[place] Route Start Time Stop Time Status Last Admin Dose Admin Nitroglycerin 0.4 mg Q5MINP PRN SL 12/22/24 18:00 Morphine Sulfate 2 mg Q30M PRN IV 12/22/24 18:00 Sodium Chloride 1,000 ml @ 100 mls/hr Q10H IV 12/22/24 18:00 12/24/24 09:01 100 MLS/HR Pantoprazole Sodium 40 mg DAILY IV 12/23/24 10:00 12/25/24 10:20 40 MG Enoxaparin Sodium 40 mg DAILY SC 12/23/24 10:00 12/25/24 10:21 40 MG Ondansetron HCl 4 mg Q4HPRN PRN IV 12/22/24 18:30 Diagnostic Test (Pha) 1 strip ACHS 12/24/24 07:00 12/25/24 11:27 1 STRIP Insulin Human Regular ACHS SC 12/24/24 07:00 12/25/24 11:33 3 UNITS Dextrose 50 ml UD PRN IV 12/24/24 03:45 Piperacillin Sod/ Tazobactam Sod 100 ml @ 25 mls/hr Q8HR IV 12/24/24 14:00 12/25/24 05:57 25 MLS/HR Baclofen 10 mg BID PO 12/24/24 10:00 12/24/24 10:28 10 MG Laboratory Results Laboratory Tests 12/24/24 07:20 Urinalysis Test 12/22/24 15:04 Urine Color Light-yellow (Yellow) Urine Clarity Clear (Clear) Urine pH 6.0 (5.0-9.0) Urine Specific [place] 1.009 (1.001-1.035) Urine Protein Negative (Negative) Urine Ketones Negative (Negative) Urine Blood Negative /uL (Negative) Urine Nitrite Negative (Negative) Urine Bilirubin Negative (Negative) Urine Urobilinogen Normal mg/dL (Negative) Urine Leukocyte Esterase Negative /uL (Negative) Urine RBC 1 /hpf (0 - 4) Urine Microscopic WBC 1 /HPF (0-5) Urine Squamous Epithelial Cells Few /hpf (<5) Urine Bacteria Few /hpf (None Seen) H Urine Glucose Normal mg/dL (Normal) Microbiology Microbiology Date/Time Source Procedure Growth Status 12/22/24 18:32 Blood Blood Culture - Preliminary NO GROWTH AFTER 48 HOURS OF INCUBATION. Resulted Labs and/or images reviewed: Labs reviewed by me, Image(s) reviewed by me Assessment/Plan Assessment/Plan Abdominal pain improving Nausea and vomiting improving Pneumobilia possibly secondary to prior procedures Transaminitis History of GERD Status post extensive enterolysis, laparoscopic-assisted hepato jejunostomy and laparoscopic robotic jejunal jejunostomy Performed at [facility] in March 2023 Plan: Discussed with Dr. Mcelroy Schedule for EGD for 12/26/2024, discussed risks, benefits and alternatives of procedure and sedation, patient understands and agrees Plan discussed with: Patient, Other (RN) My Orders Orders - MONROE HORTA Procedure Category Date Status Time Prothrombin Time W/ LAB 12/25/24 Logged INR 13:03 Obtain Consent For: ORDERS 12/25/24 Transmitted 13:03 Npo (Nothing By DIET 12/25/24 Transmitted Mouth) Diet Dinner Obtain Consent For [place] 12/25/24 In Process Anesthesia 13:03 Date of Service: Dec 25, 2024 Billing Provider: MONROE HORTA Common Visit Codes: [id number] INP/OBS CARE(HIGH) MONROE HORTA Dec 25, 2024 13:30
[2024-12-25] MEDS ORDERED: HYDR-4798 PO (13:36)
[2024-12-25] MEDS ORDERED: DICY10CA PO (13:36)
--- NOTE | 2024-12-25 13:48 | DVHDS2 ---
Discharge Summary Date of Admission Dec 22, 2024 at 17:56 Date of Discharge: Dec 25, 2024 Labs/Diagnostic Data: Laboratory Results Test 12/25/24 11:18 12/24/24 07:20 12/23/24 13:43 12/22/24 21:07 POC Glucose 194 mg/dl (70-106) White Blood Count 6.3 10^3/uL (4.4-10.8) Red Blood Count 4.80 10^6/uL (4.0-5.20) Hemoglobin 13.2 g/dL (12.2-16.2) Hematocrit 39.6 % (36.0-46.0) Mean Corpuscular Volume 82.4 fL (80.0-100.0) Mean Corpuscular Hemoglobin 27.4 pg (28.0-32.0) Mean Corpuscular Hemoglobin Concent 33.3 g/dL (32.0-36.0) Red Cell Distribution Width 14.6 % (11.8-14.3) Platelet Count 267 10^3/uL (140-450) Mean Platelet Volume 9.4 fL (6.9-10.8) Neutrophils (%) (Auto) 37.6 % (37.0-80.0) Lymphocytes (%) (Auto) 53.6 % (10.0-50.0) Monocytes (%) (Auto) 6.0 % (0.0-12.0) Eosinophils (%) (Auto) 2.1 % (0.0-7.0) Basophils (%) (Auto) 0.7 % (0.0-2.0) Neutrophils # (Auto) 2.4 10 ^3/uL (1.6-8.6) Lymphocytes # (Auto) 3.4 10 ^3/uL (0.4-5.4) Monocytes # (Auto) 0.4 10 ^3/uL (0-1.3) Eosinophils # (Auto) 0.1 10 ^3/uL (0-0.8) Basophils # (Auto) 0 10 ^3/uL (0-0.2) Nucleated Red Blood Cells 0.1 % Sodium Level 143 mmol/L (136-145) Potassium Level 3.7 mmol/L (3.5-5.1) Chloride Level 107 mmol/L (98-107) Carbon Dioxide Level 25 mmol/L (20-31) Anion Gap 11 (5-15) Blood Urea Nitrogen 7 mg/dL (9-23) Creatinine 0.60 mg/dL (0.550-1.02) Glomerular Filtration Rate Calc 108 mL/min (>90) BUN/Creatinine Ratio 11.7 (10.0-20.0) Serum Glucose 112 mg/dL (74-106) Calcium Level 9.2 mg/dL (8.7-10.4) Total Bilirubin 0.8 mg/dL (0.2-1.0) Aspartate Amino Transferase (AST) 31 U/L (13-40) Alanine Aminotransferase (ALT) 68 U/L (7-40) Alkaline Phosphatase 228 U/L (46-116) Total Protein 7.6 g/dL (5.7-8.2) Albumin 3.9 g/dL (3.2-4.8) Ferritin 71.4 ng/mL (10-291) Anti-Nuclear Antibody Screen Negative (Negative) Troponin I High Sensitivity 3 ng/L (</=34) Test 12/22/24 15:35 12/22/24 15:04 Hemoglobin A1c 7.2 % A1C (<5.7) Triglycerides Level 178 mg/dL (< 150) Cholesterol Level 247 mg/dL (< 200) LDL Cholesterol 168 mg/dL (< 100) HDL Cholesterol 65 mg/dL (40-59) Lipase 48 U/L (12-53) Vitamin D 25-Hydroxy 13.2 ng/mL (30.0-100) Thyroid Stimulating Hormone (TSH) 1.63 uIU/mL (0.55-4.78) Urine Color Light-yellow (Yellow) Urine Clarity Clear (Clear) Urine pH 6.0 (5.0-9.0) Urine Specific [place] 1.009 (1.001-1.035) Urine Protein Negative (Negative) Urine Ketones Negative (Negative) Urine Blood Negative /uL (Negative) Urine Nitrite Negative (Negative) Urine Bilirubin Negative (Negative) Urine Urobilinogen Normal mg/dL (Negative) Urine Leukocyte Esterase Negative /uL (Negative) Urine RBC 1 /hpf (0 - 4) Urine Microscopic WBC 1 /HPF (0-5) Urine Squamous Epithelial Cells Few /hpf (<5) Urine Bacteria Few /hpf (None Seen) Urine Glucose Normal mg/dL (Normal) Other Laboratory Tests 12/24/24 07:20 Brief Hx & Hospital Course: 54-year-old female with past medical history of type 2 diabetes mellitus on insulin, mixed hyperlipidemia, transaminitis, biliary stricture, blockage of bile duct, hyperbilirubinemia, descending colon and sigmoid diverticulosis, liver abscess presented to hospital with a chief complaint of intractable nausea and vomiting for past 7-8 days. As per patient since March 2024 when she was diagnosed with liver abscess, she had on and off right upper quadrant abdominal pain which comes and goes, lasts less than 24 hours, 4/10 usually. However this time similar kind of pain lasted more than 24 over, had severe intractable nausea and vomiting on December 20, with intractable abdominal pain reaches eight to 10/10 prompted visit to the hospital. Patient also feeling she reached/had few chills for past few days as well. Patient denied diarrhea. Patient has extensive history of biliary stricture with multiple stents which was done three years ago with duodenal jejunostomy as well. However that problem has been taken care, she is not feeling well since last year when she was diagnosed with liver abscess and treated with IV antibiotic without procedure. Patient feeling dehydrated, urine is dark in color, patient had last menstrual period seven years ago, no chest pain, no shortness on breath, no motor or sensory weakness or no any other symptom. Patient denying any other complaint at this point. Condition at Discharge: Fair Final Diagnosis/Problems List Acute gastroenteritis, infectious etiology likely Acute right upper quadrant abdominal pain likely related to biliary colic/biliary stricture Ruled out liver abscess SBO ruled out. Ruled out liver mass Ruled out biliary obstruction Ruled out acute abdomen Pneumobilia, likely due to history of cholecystectomy and abdominal surgery /enterolysis Diabetes mellitus type 2 with hyperglycemia History of hypertension Transaminitis with Fatty liver disease Severe GERD History of extensive enterolysis, laparoscopic assisted hepaticojejunostomy and laparoscopic/robotic jejunal jejunostomy Obesity BMI 33.1 kg/m2 Discharge Disposition: Home Discharge Instruct/Medications Diet: See Comment Diet comment: Full liquid diet, diabetic Activity: No Restrictions, As Tolerated Follow Up/Referral: See below Medications: See below Scheduled Amoxicillin & Pot Clavulanate (Augmentin Tablet), 875 MG PO BID Insulin Glargine (Basaglar Kwikpen), 10 UNIT SC DAILY, (Reported) Pantoprazole Sodium Sesquihydr (Pantoprazole Sodium), 1 TAB PO DAILY, (Reported) Pantoprazole Sodium Sesquihydr (Protonix), 40 MG PO DAILY Sucralfate (Carafate Susp), 1 GM PO TID@0600,1130,2200 Scheduled PRN Dicyclomine Hcl (Bentyl Capsule), 1 CAP PO TID PRN Hydrocodone-Acetaminophen (Hydrocodone Bitartrate/AC 10-325 mg), 1 TAB PO TIDP PRN Miscellaneous Medications Insulin Lispro (Human) (Humalog), 100 UNIT SC, (Reported) Discharge Statement: "Patient was advised to return to the ER or call 911 if any headaches, dizziness, shortness of breath, chest pain, abdominal pain, bleeding, fevers, or worsening of medical condition. Patient was counseled about treatment plan, medications, possible side effects, patientverbalized understanding. All questions were answered to the best of my ability. This discharge took greater then 30 minutes in planning, reviewing documentation, counseling the patient, and discussing with other team members." Date of Service: Dec 25, 2024 Billing Provider: COTY MEDRANO MD Common Visit Codes: NOT BILLABLE COTY MEDRANO MD Dec 25, 2024 13:48
[2024-12-25 15:06] LABS: INR 1.03 (0.9-1.15); Prothrombin Time 10.9 sec (9.3-11.8)
[2024-12-25 17:00] VITALS: BP 127/81; PULSE 61; RESP 18; TEMP 97.9; O2SAT 100
--- NOTE | 2024-12-25 17:01 | DVHPN2 ---
Subjective Patient is seen at bedside, still some nausea. Reviewed: H&P Changes from previous H/P or p: No Changes General: Per HPI Eyes: No Pain, No Vision change, No Conjunctivae inflammation, No Eyelid inflammation, No Other, No Redness ENT: No Ear pain, No Ear discharge, No Nose pain, No Nose discharge, No Nose congestion, No Mouth pain, No Mouth swelling, No Throat pain, No Throat swelling, No Other Cardiovascular: No Chest Pain, No Palpitations, No Orthopnea, No Paroxysmal Noc. Dyspnea, No Edema, No Lt Headedness, No Other Respiratory: No Cough, No Dry, No Shortness of breath, No SOB with excertion, No Wheezing, No Hemoptysis, No Pleuritic Pain, No Sputum, No Other Gastrointestinal: Nausea, Vomiting, Abdominal Pain Genitourinary: No Dysuria, No Frequency, No Incontinence, No Hematuria, No Retention, No Other Musculoskeletal: No other, No neck pain, No shoulder pain, No arm pain, No back pain, No hand pain, No leg pain, No foot pain Skin: No Rash, No Lesions, No Jaundice, No Bruising, No Other Objective Vitals Vital Signs Date Time Temp Pulse Resp B/P (MAP) Pulse Ox O2 Delivery O2 Flow Rate FiO2 12/25/24 09:00 97.9 72 18 107/71 (83) 96 97.9 12/24/24 20:00 Room Air* 0 21 Intake/Output Intake and Output 12/25/24 07:00 Intake Total 1450 ml Output Total 4 ml Balance 1446 ml Intake Oral 700 ml IV Total 750 ml Output Stool Total 1 ml Urine/Stool Mix 3 ml Exam General: Lucid, afebrile, mucosae are moist Cardiovascular: Normal S1 and S2. No murmurs, gallops or rubs Respiratory: Normal ventilation mechanics. Clear lung sounds on auscultation Abdomen: Soft, mild tenderness on deep palpation on right upper quadrant, no organomegaly, normal bowel sounds MSK/skin: Mobilizes 4 limbs. Skin is dry and warm Neurological: Oriented in 3 spheres. No motor no sensitive deficits. Pupils are isocoric and reactive General Appearance: Alert, Oriented X3, Cooperative, No acute distress, mild distress, moderate distress, severe distress, Other Lungs: Clear to auscultation, Normal air movement, Other Cardiovascular: Regular rate, Normal S1, Normal S2, No murmurs, Gallops, Rubs, Other Abdomen: Normal bowel sounds, Soft, No tenderness, No hepatospenomegaly, No masses, Other Medications Current Medications Medications Dose Ordered Sig/[place] Route Start Time Stop Time Status Last Admin Dose Admin Nitroglycerin 0.4 mg Q5MINP PRN SL 12/22/24 18:00 Morphine Sulfate 2 mg Q30M PRN IV 12/22/24 18:00 Sodium Chloride 1,000 ml @ 100 mls/hr Q10H IV 12/22/24 18:00 12/24/24 09:01 100 MLS/HR Pantoprazole Sodium 40 mg DAILY IV 12/23/24 10:00 12/25/24 10:20 40 MG Enoxaparin Sodium 40 mg DAILY SC 12/23/24 10:00 12/25/24 10:21 40 MG Ondansetron HCl 4 mg Q4HPRN PRN IV 12/22/24 18:30 Diagnostic Test (Pha) 1 strip ACHS 12/24/24 07:00 12/25/24 11:27 1 STRIP Insulin Human Regular ACHS SC 12/24/24 07:00 12/25/24 11:33 3 UNITS Dextrose 50 ml UD PRN IV 12/24/24 03:45 Piperacillin Sod/ Tazobactam Sod 100 ml @ 25 mls/hr Q8HR IV 12/24/24 14:00 12/25/24 15:43 25 MLS/HR Baclofen 10 mg BID PO 12/24/24 10:00 12/24/24 10:28 10 MG Laboratory Results Laboratory Tests 12/24/24 07:20 Coagulation Test 12/25/24 14:39 Prothrombin Time 10.9 sec (9.3-11.8) Prothrombin Time INR 1.03 (0.9-1.15) Urinalysis Test 12/22/24 15:04 Urine Color Light-yellow (Yellow) Urine Clarity Clear (Clear) Urine pH 6.0 (5.0-9.0) Urine Specific [place] 1.009 (1.001-1.035) Urine Protein Negative (Negative) Urine Ketones Negative (Negative) Urine Blood Negative /uL (Negative) Urine Nitrite Negative (Negative) Urine Bilirubin Negative (Negative) Urine Urobilinogen Normal mg/dL (Negative) Urine Leukocyte Esterase Negative /uL (Negative) Urine RBC 1 /hpf (0 - 4) Urine Microscopic WBC 1 /HPF (0-5) Urine Squamous Epithelial Cells Few /hpf (<5) Urine Bacteria Few /hpf (None Seen) H Urine Glucose Normal mg/dL (Normal) Microbiology Microbiology Date/Time Source Procedure Growth Status 12/22/24 18:32 Blood Blood Culture - Preliminary NO GROWTH AFTER 48 HOURS OF INCUBATION. Resulted Labs and/or images reviewed: Labs reviewed by me, Image(s) reviewed by me Assessment/Plan Assessment/Plan 54-year-old female with past medical history of type 2 diabetes mellitus on insulin, mixed hyperlipidemia, transaminitis, biliary stricture, blockage of bile duct, hyperbilirubinemia, descending colon and sigmoid diverticulosis, liver abscess presented to hospital with a chief complaint of intractable nausea and vomiting for past 7-8 days. As per patient since March 2024 when she was diagnosed with liver abscess, she had on and off right upper quadrant abdominal pain which comes and goes, lasts less than 24 hours, 4/10 usually. However this time similar kind of pain lasted more than 24 over, had severe intractable nausea and vomiting on December 20, with intractable abdominal pain reaches eight to 10/10 prompted visit to the hospital. Patient also feeling she reached/had few chills for past few days as well. Patient denied diarrhea. Patient has extensive history of biliary stricture with multiple stents which was done three years ago with duodenal jejunostomy as well. However that problem has been taken care, she is not feeling well since last year when she was diagnosed with liver abscess and treated with IV antibiotic without procedure. Patient feeling dehydrated, urine is dark in color, patient had last menstrual period seven years ago, no chest pain, no shortness on breath, no motor or sensory weakness or no any other symptom. Patient denying any other complaint at this point. 12/23: Patient presenting with intractable nausea and vomiting with Rich history of his surgeries involving enterolysis. Has pneumobilia probably from the surgeries status post cholecystectomy. GI consulted recommend outpatient follow up with primary GI doctor, otherwise continue Protonix, Zofran, symptomatic treatment, pain management. This could possibly be gastroenteritis viral/bacterial infectious, continuing IV antibiotics and prior treatment plan Protonix/Zofran/IV fluids. Diet as tolerated. 12/24: Patient does feel a little better but still has some lingering pain. She has been taking antacids outpatient but still has the pain. will try solumedrol 20 and continue antiemetics. reaction to unasyn , so will continue back to zosyn. 12/25 patient was given steroids yesterday which significantly help the patient improve pain. She has also been improving with the Protonix IV. Patient feeling well wants to go home, tolerating p.o., vital signs stable. Initially plan for patient to go home but patient discussed with GI and plan for endoscopy upper GI tomorrow. We will keep patient NPO midnight Diagnosis: Acute gastroenteritis, infectious etiology likely Acute right upper quadrant abdominal pain likely related to biliary colic/biliary stricture Ruled out liver abscess SBO ruled out. Ruled out liver mass Ruled out biliary obstruction Ruled out acute abdomen Pneumobilia, likely due to history of cholecystectomy and abdominal surgery /enterolysis Diabetes mellitus type 2 with hyperglycemia History of hypertension Transaminitis with Fatty liver disease Severe GERD History of extensive enterolysis, laparoscopic assisted hepaticojejunostomy and laparoscopic/robotic jejunal jejunostomy Obesity BMI 33.1 kg/m2 current inpatient Plan: IV fluids Prn analgesia Status post Solu-Medrol x1 Baclofen 10 b.i.d. Protonix IV daily Zosyn IV antibiotics anticipated dc Plan: -Continue follow up with primary GI doctor, discuss repeat endoscopy. -full liquid diet diabetic. 1 week -continue [place] 10 times daily as needed for pain uses 3rd line. First line Tylenol, second-line ibuprofen -Continue Protonix 40 daily, continue Carafate up to 3 times daily -Continue low spicy level food, avoid caffeine and chocolate and tomato sauce based foods -Take Bentyl for breakthrough abdominal pain. -Follow up with PCP to review discharge DVT prophylaxis with Lovenox PUD prophylaxis with Protonix Med surge Full code Plan discussed with: Patient My Orders Orders - COTY MEDRANO MD Procedure Category Date Status Time Discharge DISCHARGE 12/25/24 Transmitted 13:44 Date of Service: Dec 25, 2024 Billing Provider: COTY MEDRANO MD Common Visit Codes: [id number] INP/OBS CARE(HIGH) COTY MEDRANO MD Dec 25, 2024 17:01
[2024-12-25 20:00] VITALS: PULSE 71; RESP 18; O2SAT 99
[2024-12-25 21:04] VITALS: BP 117/75; PULSE 71; RESP 19; TEMP 97.7; O2SAT 99
[2024-12-25] MEDS: DICYCLOMINE HCL 10 MG CAP PO PRN (21:05)
[2024-12-25] MEDS: HYDROcodone-ACET 5/325MG TAB PO PRN (22:58)
[2024-12-26 07:44] LABS: Hematocrit 43.4 % (36.0-46.0); Hemoglobin 14.0 g/dL (12.2-16.2); Mean Corpuscular Hemoglobin 26.7 pg (28.0-32.0); Mean Corpuscular Volume 82.7 fL (80.0-100.0); Nucleated Red Blood Cells % 0.1 %
[2024-12-26 07:54] LABS: Urine Protein, UAD Negative (Negative)
[2024-12-26 08:40] VITALS: BP 115/61; PULSE 63; RESP 20; TEMP 98.1; O2SAT 97
[2024-12-26] MEDS: GADOTERATE MEG 10 MMOL/20ml INJ (0.5MMOL/ml) IV ONE (08:43)
[2024-12-26] MEDS ORDERED: fentaNYL CITRATE 100 MCG/2 ML VL ONE (12:46)
[2024-12-26] MEDS ORDERED: MIDAZOLAM HCL 2MG/2ML 2ml VIAL (1mg/ml) ONE (12:46)
[2024-12-26] MEDS ORDERED: ONDANSETRON HCL 4 MG/2 ML VIAL ONE (12:47)
[2024-12-26] MEDS ORDERED: LIDOCAINE 2% (LOCAL ANESTH.) PF 5ml SDV ONE (12:47)
[2024-12-26] MEDS ORDERED: GLYCOPYRROLATE 0.2 MG/ML 1ML VIAL ONE (12:48)
[2024-12-26 12:58] VITALS: PULSE 84; RESP 16; O2SAT 95
--- NOTE | 2024-12-26 13:05 | DVHOP2 ---
Operative Report DATE OF OPERATION: 12/26/24 PROCEDURE: Upper Endoscopy with biopsy. PREOPERATIVE INDICATION: The patient is a 54 -year-old female undergoing endoscopy for abdominal pain POSTOPERATIVE DIAGNOSES: 1. 1-2 cm sliding-type hiatal hernia with slightly irregular squamocolumnar junction no significant erosive esophagitis 2. Mild gastritis involving the antrum and body of the stomach 3. Otherwise normal examination of the 2nd and 3rd part of the duodenum with no visible biliary stent or anastomosis in the duodenal sweep PROCEDURE PERFORMED BY: Jason Mcelroy GI NURSE: Sav SCOPE: Olympus videoendoscope. ASA CLASS: 3 PREOPERATIVE MEDICATIONS: Mac sedation, Dr. Gaona PROCEDURE IN DETAIL: After obtaining an informed consent, the patient was placed on left lateral decubitus position. The patient was then sedated with the above medications. A bite block was placed between her teeth. The endoscope was then passed through the oropharynx, into the esophagus, and through the stomach and pylorus up to the second and third part of the duodenum. The endoscope was then withdrawn. The 2nd and 3rd part of the duodenal and the duodenal bulb were normal. Duo denal biopsies were obtained There was no significant bile drainage and no evidence of a drain or an anastomosis in the duodenal sweep The pre-pyloric area and antrum showed mild gastritis. Gastric biopsies were obtained. On retroflexion the fundus and cardia were normal. The endoscope was then withdrawn into the distal esophagus where the patient had a 1-2 cm sliding-type hiatal hernia with slightly irregular squamocolumnar junction There was no significant erosive esophagitis in the remaining distal and proximal esophagus and oropharynx were unremarkable The patient tolerated the procedure well without difficulty. COMPLICATIONS : None SPECIMENS: Duodenum Biopsies Gastric biopsies DISPOSITION: Transfer back to the floor Stable PLAN: 1. Await for biopsy result 2. Will place pt on Protonix 40 mg p.o. daily 3. Resume GI soft diet advance as tolerated 4. Pain management as needed 5. Outpatient follow up with me in 4-6 weeks to review results and discuss further management JASON MCELROY MD Dec 26, 2024 13:05
--- NOTE | 2024-12-26 16:38 | DVHPN2 ---
Subjective Patient is seen at bedside, still some nausea. Reviewed: H&P Changes from previous H/P or p: No Changes General: Per HPI Eyes: No Pain, No Vision change, No Conjunctivae inflammation, No Eyelid inflammation, No Other, No Redness ENT: No Ear pain, No Ear discharge, No Nose pain, No Nose discharge, No Nose congestion, No Mouth pain, No Mouth swelling, No Throat pain, No Throat swelling, No Other Cardiovascular: No Chest Pain, No Palpitations, No Orthopnea, No Paroxysmal Noc. Dyspnea, No Edema, No Lt Headedness, No Other Respiratory: No Cough, No Dry, No Shortness of breath, No SOB with excertion, No Wheezing, No Hemoptysis, No Pleuritic Pain, No Sputum, No Other Gastrointestinal: Nausea, Vomiting, Abdominal Pain Genitourinary: No Dysuria, No Frequency, No Incontinence, No Hematuria, No Retention, No Other Musculoskeletal: No other, No neck pain, No shoulder pain, No arm pain, No back pain, No hand pain, No leg pain, No foot pain Skin: No Rash, No Lesions, No Jaundice, No Bruising, No Other Objective Vitals Vital Signs Date Time Temp Pulse Resp B/P (MAP) Pulse Ox O2 Delivery O2 Flow Rate FiO2 12/26/24 13:25 79 16 103/51 (68) 99 12/26/24 12:58 Room Air 0 95 12/26/24 12:58 98.4 98.4 Intake/Output Intake and Output 12/26/24 07:00 Intake Total 2282 ml Balance 2282 ml Intake Oral 1382 ml IV Total 900 ml # Voids 7 # Bowel Movements 1 Exam General: Lucid, afebrile, mucosae are moist Cardiovascular: Normal S1 and S2. No murmurs, gallops or rubs Respiratory: Normal ventilation mechanics. Clear lung sounds on auscultation Abdomen: Soft, mild tenderness on deep palpation on right upper quadrant, no organomegaly, normal bowel sounds MSK/skin: Mobilizes 4 limbs. Skin is dry and warm Neurological: Oriented in 3 spheres. No motor no sensitive deficits. Pupils are isocoric and reactive General Appearance: Alert, Oriented X3, Cooperative, No acute distress, mild distress, moderate distress, severe distress, Other Lungs: Clear to auscultation, Normal air movement, Other Cardiovascular: Regular rate, Normal S1, Normal S2, No murmurs, Gallops, Rubs, Other Abdomen: Normal bowel sounds, Soft, No tenderness, No hepatospenomegaly, No masses, Other Medications Current Medications Medications Dose Ordered Sig/[place] Route Start Time Stop Time Status Last Admin Dose Admin Nitroglycerin 0.4 mg Q5MINP PRN SL 12/22/24 18:00 Morphine Sulfate 2 mg Q30M PRN IV 12/22/24 18:00 Sodium Chloride 1,000 ml @ 100 mls/hr Q10H IV 12/22/24 18:00 12/26/24 13:49 100 MLS/HR Pantoprazole Sodium 40 mg DAILY IV 12/23/24 10:00 12/26/24 09:21 40 MG Enoxaparin Sodium 40 mg DAILY SC 12/23/24 10:00 12/25/24 10:21 40 MG Ondansetron HCl 4 mg Q4HPRN PRN IV 12/22/24 18:30 Diagnostic Test (Pha) 1 strip ACHS 12/24/24 07:00 12/26/24 11:30 1 STRIP Insulin Human Regular ACHS SC 12/24/24 07:00 12/26/24 07:00 2 UNITS Dextrose 50 ml UD PRN IV 12/24/24 03:45 Piperacillin Sod/ Tazobactam Sod 100 ml @ 25 mls/hr Q8HR IV 12/24/24 14:00 12/26/24 13:48 25 MLS/HR Baclofen 10 mg BID PO 12/24/24 10:00 12/24/24 10:28 10 MG Dicyclomine HCl 20 mg QID PRN PO 12/25/24 17:00 12/25/24 21:05 20 MG Acetaminophen/ Hydrocodone Bitart 1 tab Q8HPRN PRN PO 12/25/24 22:45 12/25/24 22:58 1 TAB Laboratory Results Laboratory Tests 12/24/24 07:20 12/26/24 07:30 Urinalysis Test 12/26/24 07:00 Urine Color Yellow (Yellow) Urine Clarity Clear (Clear) Urine pH 6.0 (5.0-9.0) Urine Specific [place] 1.034 (1.001-1.035) Urine Protein Negative (Negative) Urine Ketones Trace (Negative) Urine Blood Negative /uL (Negative) Urine Nitrite Negative (Negative) Urine Bilirubin Negative (Negative) Urine Urobilinogen Normal mg/dL (Negative) Urine Leukocyte Esterase Negative /uL (Negative) Urine RBC 2 /hpf (0 - 4) Urine Microscopic WBC 2 /HPF (0-5) Urine Squamous Epithelial Cells Mod /hpf (<5) Urine Bacteria None seen /hpf (None Seen) Urine Glucose Normal mg/dL (Normal) Microbiology Microbiology Date/Time Source Procedure Growth Status 12/22/24 18:32 Blood Blood Culture - Preliminary NO GROWTH AFTER 72 HOURS OF INCUBATION. Resulted Labs and/or images reviewed: Labs reviewed by me, Image(s) reviewed by me Assessment/Plan Assessment/Plan 54-year-old female with past medical history of type 2 diabetes mellitus on insulin, mixed hyperlipidemia, transaminitis, biliary stricture, blockage of bile duct, hyperbilirubinemia, descending colon and sigmoid diverticulosis, liver abscess presented to hospital with a chief complaint of intractable nausea and vomiting for past 7-8 days. As per patient since March 2024 when she was diagnosed with liver abscess, she had on and off right upper quadrant abdominal pain which comes and goes, lasts less than 24 hours, 4/10 usually. However this time similar kind of pain lasted more than 24 over, had severe intractable nausea and vomiting on December 20, with intractable abdominal pain reaches eight to 10/10 prompted visit to the hospital. Patient also feeling she reached/had few chills for past few days as well. Patient denied diarrhea. Patient has extensive history of biliary stricture with multiple stents which was done three years ago with duodenal jejunostomy as well. However that problem has been taken care, she is not feeling well since last year when she was diagnosed with liver abscess and treated with IV antibiotic without procedure. Patient feeling dehydrated, urine is dark in color, patient had last menstrual period seven years ago, no chest pain, no shortness on breath, no motor or sensory weakness or no any other symptom. Patient denying any other complaint at this point. 12/23: Patient presenting with intractable nausea and vomiting with Rich history of his surgeries involving enterolysis. Has pneumobilia probably from the surgeries status post cholecystectomy. GI consulted recommend outpatient follow up with primary GI doctor, otherwise continue Protonix, Zofran, symptomatic treatment, pain management. This could possibly be gastroenteritis viral/bacterial infectious, continuing IV antibiotics and prior treatment plan Protonix/Zofran/IV fluids. Diet as tolerated. 12/24: Patient does feel a little better but still has some lingering pain. She has been taking antacids outpatient but still has the pain. will try solumedrol 20 and continue antiemetics. reaction to unasyn , so will continue back to zosyn. 12/25 patient was given steroids yesterday which significantly help the patient improve pain. She has also been improving with the Protonix IV. Patient feeling well wants to go home, tolerating p.o., vital signs stable. Initially plan for patient to go home but patient discussed with GI and plan for endoscopy upper GI tomorrow. We will keep patient NPO midnight 12/26: Patient had EGD today with no significant concerning findings. Pain is likely related to patient's history of cholecystectomy and enterolysis. will assess po tolerance tonight. likely dc tomorrow if continues to tolerate po. - tentative discharge plan: Pain control with Tylenol, ibuprofen second-line, 3rd line Wheatcroft,. For breakthrough abdominal cramps can use Bentyl prn,. Otherwise follow up with primary Gastroenterology and follow up with PCP to review discharge. No further need for antibiotics outpatient, completed antibiotic treatment inpatient. No need for baclofen either. Can continue Protonix and Carafate outpatient. Diagnosis: Acute gastroenteritis, infectious etiology likely Acute right upper quadrant abdominal pain likely related to biliary colic/biliary stricture Ruled out liver abscess SBO ruled out. Ruled out liver mass Ruled out biliary obstruction Ruled out acute abdomen Pneumobilia, likely due to history of cholecystectomy and abdominal surgery /enterolysis Diabetes mellitus type 2 with hyperglycemia History of hypertension Transaminitis with Fatty liver disease Severe GERD History of extensive enterolysis, laparoscopic assisted hepaticojejunostomy and laparoscopic/robotic jejunal jejunostomy Obesity BMI 33.1 kg/m2 current inpatient Plan: IV fluids Prn analgesia Baclofen 10 b.i.d. Protonix IV daily Zosyn IV antibiotics anticipated dc Plan: -Continue follow up with primary GI doctor, discuss repeat endoscopy. -full liquid diet diabetic. 1 week -continue Wheatcroft 10 times daily as needed for pain uses 3rd line. First line Tylenol, second-line ibuprofen -Continue Protonix 40 daily, continue Carafate up to 3 times daily -Continue low spicy level food, avoid caffeine and chocolate and tomato sauce based foods -Take Bentyl for breakthrough abdominal pain. -Follow up with PCP to review discharge DVT prophylaxis with Lovenox PUD prophylaxis with Protonix Med surge Full code Plan discussed with: Patient My Orders Orders - COTY MEDRANO MD Procedure Category Date Status Time Dicyclomine Capsule PHA 12/25/24 In Process (Bentyl Capsule) 17:00 Date of Service: Dec 26, 2024 Billing Provider: COTY MEDRANO MD Common Visit Codes: [id number] INP/OBS CARE(HIGH) COTY MEDRANO MD Dec 26, 2024 16:38
[2024-12-26 17:13] VITALS: BP 135/64; PULSE 62; RESP 20; TEMP 97.9; O2SAT 99
[2024-12-26 20:00] VITALS: PULSE 70; RESP 18; O2SAT 97
[2024-12-26 21:00] VITALS: BP 137/62; PULSE 70; RESP 18; TEMP 97.2; O2SAT 97
[2024-12-27 01:00] VITALS: BP 143/69; PULSE 62; RESP 18; TEMP 97.3; O2SAT 97
[2024-12-27 05:00] VITALS: BP 131/74; PULSE 61; RESP 18; TEMP 98.1; O2SAT 99
[2024-12-27 09:00] VITALS: BP 124/63; PULSE 62; RESP 17; TEMP 98.1; O2SAT 98
[2024-12-27 13:00] VITALS: BP 130/73; PULSE 58; RESP 18; TEMP 97.7; O2SAT 97
[2024-12-27 17:00] VITALS: BP 130/75; PULSE 62; RESP 18; TEMP 98; O2SAT 100
--- NOTE | 2024-12-27 22:08 | DVHPN2 ---
Progress Note - Dictate Date Seen: Dec 27, 2024 (Late entryTime of visit 5 pm) Medical Necessity Reason Pt with a Central, PICC or Fol: No Subjective No new complaints Tolerating diet Abdominal pain and nausea improving EGD findings Operative Report DATE OF OPERATION: 12/26/24 PROCEDURE: Upper Endoscopy with biopsy. PREOPERATIVE INDICATION: The patient is a 54 -year-old female undergoing endoscopy for abdominal pain POSTOPERATIVE DIAGNOSES: 1. 1-2 cm sliding-type hiatal hernia with slightly irregular squamocolumnar junction no significant erosive esophagitis 2. Mild gastritis involving the antrum and body of the stomach 3. Otherwise normal examination of the 2nd and 3rd part of the duodenum with no visible biliary stent or anastomosis in the duodenal sweep vital signs Vital Sign Date Time Temp Pulse Resp B/P (MAP) Pulse Ox O2 Delivery O2 Flow Rate FiO2 12/27/24 17:00 98.0 62 18 130/75 (93) 100 98.0 12/27/24 08:00 Room Air* 0 21 Total Intake and Output 12/26/24 12/26/24 12/27/24 15:00 23:00 07:00 Intake Total 10 ml 300 ml 200 ml Balance 10 ml 300 ml 200 ml objective General Appearance: Alert, Oriented X3, Cooperative, No acute distress, Lungs: Clear to auscultation, Normal air movement, Other Cardiovascular: Regular rate, Normal S1, Normal S2, No murmurs, Abdomen: Normal bowel sounds, Soft, No tenderness, No hepatospenomegaly, No masses, laboratory and microbiology Laboratory Tests 12/26/24 07:30 12/24/24 07:20 Test 12/24/24 07:20 Range/Units Serum Glucose 112 H 74-106 mg/dL Problems(with codes): (1) Abdominal pain (2) Nausea and vomiting (3) Gastritis (4) Hiatal hernia Prognosis Plan Continue supportive care; Discharge planning is in progress Protonix 40 mg p.o. daily Bentyl 10 mg p.o. twice a day or three times a day as needed Dietary and lifestyle modifications for GERD No further GI workup or intervention at this time Outpatient follow up with GI Services to discuss elective colonoscopy if not recently done Dietary Evaluation Review Comments: Nutrition Recommendation: 1) Advance to [facility] 45gm soft diet as medically feasible 2) Refer [facility] for diabetes education 3) Monitor PO intake, lab values, weight trend, and I/O Expected Outcomes/Goals: To meet >75% estimated needs GI symptoms to improve Fu 2-3 days Plan discussed with: Other (Dr James) JASON GARG MD Dec 27, 2024 22:08
[2024-12-28 01:09] VITALS: BP 150/91; PULSE 87; RESP 16; TEMP 97.8; O2SAT 96
== END 2024-12-27 18:50 | disposition home or self-care (01) ==
LOC: ER 14:22 → OVERFLOW 17:56 → WEST WING 12-23 22:53
PROVIDERS: ADMIT Student in an Organized Health Care Education/Training Program; ATTEND Student in an Organized Health Care Education/Training Program
PROC: 0DB68ZX Excision of Stomach, Via Natural or Artificial Opening Endoscopic, Diagnostic (ICD-10-PCS; 2024-12-26)
PROC: 0DB98ZX Excision of Duodenum, Via Natural or Artificial Opening Endoscopic, Diagnostic (ICD-10-PCS; principal; 2024-12-26 12:46)
DX: K80.51 Calculus of bile duct without cholangitis or cholecystitis with obstruction (principal); A09 Infectious gastroenteritis and colitis, unspecified; K21.9 Gastro-esophageal reflux disease without esophagitis; E66.9 Obesity, unspecified; K76.0 Fatty (change of) liver, not elsewhere classified; E11.9 Type 2 diabetes mellitus without complications; K83.8 Other specified diseases of biliary tract; E11.65 Type 2 diabetes mellitus with hyperglycemia; I10 Essential (primary) hypertension; E78.2 Mixed hyperlipidemia; K44.9 Diaphragmatic hernia without obstruction or gangrene; K29.70 Gastritis, unspecified, without bleeding; Z68.33 Body mass index [BMI] 33.0-33.9, adult; Z88.1 Allergy status to other antibiotic agents; Z79.1 Long term (current) use of non-steroidal anti-inflammatories (NSAID); Z79.4 Long term (current) use of insulin; Z90.49 Acquired absence of other specified parts of digestive tract; Z98.891 History of uterine scar from previous surgery
CPT/HCPCS: 36415; 43239; 71045; 74176; 74183; 80053; 80061; 81001; 82306; 82728; 82962; 83036; 83690; 84443; 84484; 85025; 85610; 86038; 86850; 86900; 86901; 87040; G0378; J1815; J2003; J2250; J2405; J2470; J2543